=== PATIENT | male | born 1945 | race Caucasian/White ===

== ENCOUNTER → 2018-01-22 | Outpatient (CLI) | payer BC ==
[~2018-01-22] MED LIST: ASPI81TA21 PO; CLBCR15 EXT; LPR25 PO; MULT-506 PO; TAMS0.4C38 PO
== END | disposition home or self-care (01) ==
LOC: C.LAB 08:24
PROVIDERS: ATTEND Urology
DX: R97.20 Elevated prostate specific antigen [PSA] (principal)

== ENCOUNTER 2021-12-09 17:20 | Inpatient (IN) ==
--- NOTE | 2021-12-09 17:51 | Emergency Department Note ---
Impression & Plan Acute urinary retention ADMIT ED Provider Note HPI: The patient is a 76-year-old gentleman with history of BPH, presents the emergency department with 3 to 4 days of hematuria and urinary retention. Patient states that he continues to have some pain today in the suprapubic area that acutely worsened. States he was having difficulty with urination and was just urinating gerry blood and therefore he presented to the emergency department for further assessment. Patient is noted to be anticoagulated on Eliquis for history of atrial fibrillation. On arrival here to the ED he is in no acute distress, he is hemodynamically stable and saturating well on room air. ROS: -: Urinary retention, suprapubic pain, hematuria *10 point review systems was conducted and is otherwise negative unless stated above *Outpatient medications and allergy history reviewed PE: General: Alert, NAD HEENT: Normocephalic, atraumatic Eyes: Extraocular eye movement is intact, no scleral erythema Pulmonary: Clear to auscultation bilaterally, no wheezing Cardio: Regular rate and rhythm GI: Abdomen is soft, nontender : Moderate suprapubic tenderness to palpation MSK: No evidence of trauma or malformation of the extremities, no edema Skin: No evidence of rash Neuro: Alert, no focal deficits Psychiatric: Cooperative monitoring specialist: - An order was placed for continuous cardiac monitoring - Patient was noted to be in atrial fibrillation rhythm with rate of 80 Medical Decision Making: Patient presented to the emergency department with gross hematuria and some urinary retention. CT imaging of the abdomen pelvis shows evidence of debris within the bladder with a markedly distended bladder, this is consistent with likely blood clots within the urinary bladder. Mukherjee catheter was placed with approximately 1000 cc of gross hematuria drained. Hemoglobin is 13.4, patient is hemodynamically stable, no acute kidney injury on lab work. Will hold on anticoagulation reversal at this time given stable hemoglobin and hemodynamic stability. Patient was given a dose of morphine here in the ED for pain. I discussed the above findings with the on-call urology midlevel provider, Garrett Hubbard, patient will be admitted to the hospitalist service with urology consultation. The patient was given a dose of IV ceftriaxone prior to admission. Patient was admitted in stable condition. Diagnosis: 1. Hematuria 2. Acute urinary retention secondary to hematuria/obstruction requiring Mukherjee catheter insertion 3. History of anticoagulation on Eliquis 4. Abdominal pain Disposition: Admission Byron Simms DO Emergency Medicine Past Med/Surg History Medical History (Updated 12/10/21 @ 01:18 by Byron Simms DO) Atrial fibrillation intermittent--follows with Dr. Matta, only blood thinner is aspirin Basal cell carcinoma Benign prostatic hyperplasia with urinary obstruction BPH (benign prostatic hyperplasia) Constipation History of anesthesia reaction pt states that after hernia sx's he has had difficulty urinating, has had to have a catheter placed Hypertension Macular degeneration of right eye Obstructive sleep apnea cpap Prostatitis Urinary urgency Surgical History History of basal cell carcinoma (BCC) excision History of colonoscopy History of esophagogastroduodenoscopy (EGD) History of hernia repair x3 History of left cataract surgery History of Mohs micrographic surgery for skin cancer x2 History of prostate biopsy History of tonsillectomy History of wisdom tooth extraction Zenkers diverticulum removed Family History Other No family history of adverse response to anesthesia Denies family history of Prostate cancer Social History Smoking Status: Never smoker Second Hand Exposure: No; Hx Alcohol Use: Yes (social) Hx Substance Use: No Preferred Language: Syrian Communication Ability: Effective 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 Beliefs That Will Affect Care: None Current Living Situation: Spouse current occupational status: employed Feels Safe at Home: Yes Assistive Devices: CPAP and Glasses Allergies Allergies Allergy/AdvReac Type Severity Reaction Status Date / Time No Known Allergies Allergy Unknown Verified 12/09/21 18:21 Home Meds Home Medications Medication Instructions Recorded Confirmed metoprolol tartrate 25 mg tablet 25 mg PO QPM tab 09/15/19 12/09/21 hydrochlorothiazide 12.5 mg tablet 12.5 mg PO QAM 04/26/21 12/09/21 apixaban 5 mg tablet (Eliquis) 5 mg PO BID 12/09/21 12/09/21 multivitamin 1 tab PO QAM 12/09/21 12/09/21 Results & Data (ED) Vital Signs Vital Signs - 24 hr 12/09/21 17:24 12/09/21 19:10 12/09/21 21:02 Temperature 36.9 C Temperature Source Temporal Artery Scan Pulse Rate 62 116 H Pulse Rate [Finger] 89 123 H Pulse Rhythm Regular Pulse Rhythm [Finger] Regular Pulse Strength Normal Respiratory Rate 20 20 16 Respiratory Effort / Characteristics Non-Labored Spontaneous Non-Labored Respiratory Depth Normal Normal Respiratory Pattern Regular Blood Pressure 128/73 Blood Pressure [Left Arm] 104/82 115/76 Blood Pressure Mean 91 Blood Pressure Mean [Left Arm] 89 89 Blood Pressure Position Sitting Pulse Oximetry 100 96 99 Oxygen Delivery Method Room Air Room Air Room Air Sepsis Recent Fever Within 48 Hours No Sepsis New/Unexplained Change in Mental Status N/A Sepsis Action Taken by Nursing No Action Required Laboratory Data Result diagrams: 12/09/21 17:55 12/09/21 17:55 Lab Results 12/09/21 12/09/21 12/09/21 Range/Units 17:55 17:55 17:55 WBC 10.88 H (4.8-10.8) K/uL RBC 4.29 L (4.7-6.1) M/uL Hgb 13.4 L (14.0-18.0) g/dL Hct 40.3 L (42-52) % MCV 93.9 (80-100) fL MCH 31.2 (25-34) pg MCHC 33.3 (32-36) g/dL RDW Std Deviation 48.6 H (36.4-46.3) fL RDW Coeff of Seun 14.3 (11.5-14.5) % Plt Count 292 (130-400) K/uL MPV 10.7 H (7.4-10.4) fL Immature Gran % (Auto) 0.1 % Neut % (Auto) 85.8 % Lymph % (Auto) 8.5 % Alfalfa % (Auto) 5.5 % Eos % (Auto) 0.0 % Baso % (Auto) 0.1 % Neut # (Auto) 9.33 H (1.4-6.5) K/uL Lymph # (Auto) 0.93 L (1.2-3.4) K/uL Alfalfa # (Auto) 0.60 H (0.11-0.59) K/uL Eos # (Auto) 0.00 (0-0.5) K/uL Baso # (Auto) 0.01 (0-0.2) K/uL Immature Gran # (Auto) 0.01 (0.00-0.02) K/uL PT 10.3 (9.0-12.0) Seconds INR 1.0 (0.9-1.1) Sodium 133 L (136-145) mmol/L Potassium 3.6 (3.5-5.1) mmol/L Chloride 97 L (98-107) mmol/L Carbon Dioxide 26 (21-32) mmol/L Anion Gap 10 (3-11) BUN 24 H (6-23) mg/dl Creatinine 1.13 (0.6-1.4) mg/dl Est Cr Clr Drug Dosing 54.6 ml/min Est GFR ( Amer) 73.3 ml/min Est GFR (Non-Af Amer) 63.2 ml/min BUN/Creatinine Ratio 21.2 H (10-20) Glucose 135 H (70-99(Fasting)) mg/dl Calcium 9.8 (8.5-10.1) mg/dl Total Bilirubin 0.4 (0.2-1.0) mg/dl AST 25 (13-39) U/L ALT 21 (7-52) U/L Alkaline Phosphatase 77 (34-104) U/L Total Protein 6.9 (6.0-8.3) gm/dl Albumin 4.4 (3.4-5.0) gm/dl Globulin 2.5 (2.5-4.0) gm/dl Albumin/Globulin Ratio 1.8 (0.9-2) Lipase 16 (11-82) U/L Urine Color Urine Appearance (Clear) Urine pH (4.5-7.5) Ur Specific [place] (1.000-1.030) Urine Protein (Negative) Urine Glucose (UA) (Negative) Urine Ketones (Negative) Urine Blood (Negative) Urine Nitrite (Negative) Urine Bilirubin (Negative) Urine Urobilinogen (Negative) Ur Leukocyte Esterase (Negative) Urine RBC (0-4) /hpf Urine WBC (0-5) /hpf Ur Epithelial Cells (0-5) /lpf Urine Bacteria (Negative) SARS-CoV-2, RNA, NAAT (NEGATIVE) 12/09/21 12/09/21 Range/Units 18:16 21:35 WBC (4.8-10.8) K/uL RBC (4.7-6.1) M/uL Hgb (14.0-18.0) g/dL Hct (42-52) % MCV (80-100) fL MCH (25-34) pg MCHC (32-36) g/dL RDW Std Deviation (36.4-46.3) fL RDW Coeff of Seun (11.5-14.5) % Plt Count (130-400) K/uL MPV (7.4-10.4) fL Immature Gran % (Auto) % Neut % (Auto) % Lymph % (Auto) % Alfalfa % (Auto) % Eos % (Auto) % Baso % (Auto) % Neut # (Auto) (1.4-6.5) K/uL Lymph # (Auto) (1.2-3.4) K/uL Alfalfa # (Auto) (0.11-0.59) K/uL Eos # (Auto) (0-0.5) K/uL Baso # (Auto) (0-0.2) K/uL Immature Gran # (Auto) (0.00-0.02) K/uL PT (9.0-12.0) Seconds INR (0.9-1.1) Sodium (136-145) mmol/L Potassium (3.5-5.1) mmol/L Chloride (98-107) mmol/L Carbon Dioxide (21-32) mmol/L Anion Gap (3-11) BUN (6-23) mg/dl Creatinine (0.6-1.4) mg/dl Est Cr Clr Drug Dosing ml/min Est GFR ( Amer) ml/min Est GFR (Non-Af Amer) ml/min BUN/Creatinine Ratio (10-20) Glucose (70-99(Fasting)) mg/dl Calcium (8.5-10.1) mg/dl Total Bilirubin (0.2-1.0) mg/dl AST (13-39) U/L ALT (7-52) U/L Alkaline Phosphatase (34-104) U/L Total Protein (6.0-8.3) gm/dl Albumin (3.4-5.0) gm/dl Globulin (2.5-4.0) gm/dl Albumin/Globulin Ratio (0.9-2) Lipase (11-82) U/L Urine Color Red Urine Appearance Turbid A (Clear) Urine pH (4.5-7.5) Ur Specific [place] 1.018 (1.000-1.030) Urine Protein (Negative) Urine Glucose (UA) (Negative) Urine Ketones (Negative) Urine Blood (Negative) Urine Nitrite (Negative) Urine Bilirubin (Negative) Urine Urobilinogen (Negative) Ur Leukocyte Esterase (Negative) Urine RBC >30 H (0-4) /hpf Urine WBC 5-10 H (0-5) /hpf Ur Epithelial Cells 0-5 (0-5) /lpf Urine Bacteria 2+ H (Negative) SARS-CoV-2, RNA, NAAT NEGATIVE (NEGATIVE) Administered Medications Lactated Ringer's (Lr) 1,000 mls @ 125 mls/hr IV .Q8H KAREN Stop: 01/09/22 00:11 Last Admin: 12/10/21 00:26 Dose: 125 mls/hr Documented by: [id number] Discontinued Medications Ceftriaxone Sodium (Rocephin) 1,000 mg in 50 mls @ 100 mls/hr IV NOW STA Stop: 12/09/21 22:03 Last Infusion: 12/09/21 22:30 Dose: 0 mls/hr Documented by: [id number] Admin: 12/09/21 22:02 Dose: 100 mls/hr Documented by: [id number] Morphine Sulfate (Morphine Sulfate 4 Mg/Ml 1 Ml Carp\Vial) 4 mg IV NOW STA Stop: 12/09/21 21:14 Last Admin: 12/09/21 21:32 Dose: 4 mg Documented by: [id number] Tamsulosin HCl (Tamsulosin Hcl 0.4 Mg Cap) 0.4 mg PO NOW ONE Stop: 12/09/21 22:32 Last Admin: 12/10/21 00:37 Dose: 0.4 mg Documented by: [id number] Imaging Data Radiologist's Impression: Abdomen/Pelvis CT 12/09/21 17:49 CT SCAN OF THE ABDOMEN AND PELVIS WITHOUT IV CONTRAST CLINICAL HISTORY: Lower abdominal pain. Urinary retention. Hematuria. COMPARISON STUDY: Abdominal CT dated 05/30/2012. TECHNIQUE: CT scan of the abdomen and pelvis is performed from the lung bases to the proximal femora. Images are reviewed in the axial, sagittal, and coronal planes. IV contrast was not administered for this examination. A dose lowering technique was utilized adhering to the principles of ALARA. CT DOSE: 882.51 mGycm FINDINGS: Lung bases: The heart is enlarged and without pericardial effusion. The lung bases are clear noting dependent scarring/atelectasis. There is a tiny hiatal hernia. Liver: The unenhanced liver is normal in size, contour, and attenuation. There is no intrahepatic biliary ductal dilatation. Gallbladder: Unremarkable. Spleen: Normal in size and attenuation. Pancreas: The unenhanced pancreas is normal in size. Scattered calcifications suggest chronic pancreatitis. Adrenal glands: Unremarkable. Kidneys: The unenhanced kidneys are normal in size. There is moderate right and mild to moderate left hydroureteronephrosis. The ureters are distended to the level of the bladder. No hyperdense debris or calculi are identified within the renal pelvis bilaterally or along the course of the ureters. There is no evidence of contour deforming renal mass lesion. Abdominal vasculature: The abdominal aorta is normal in course and caliber noting scattered foci of atherosclerotic calcification. Bowel: There is mild to moderate colonic fecal retention. No bowel obstruction is identified. The appendix is well-visualized and normal. Peritoneum: There is no intraperitoneal free air or abdominal ascites. Lymphadenopathy: None. Pelvic viscera: The bladder is distended, measuring 15.5 cm cranial caudal length. The bladder is filled with hyperdense material which likely represents blood clots. A Mukherjee catheter is in place. The bladder wall appears thickened and trabeculated indicating chronic outlet obstruction. A 14 mm bladder diverticulum is seen posteriorly on the left. The prostate gland is markedly enlarged and heterogeneous, measuring 6.7 cm in transverse diameter. There is evidence of previous bilateral inguinal herniorrhaphy. Skeletal structures: The skeletal structures are osteopenic. There is mild lumbosacral spondylosis. No lytic or blastic lesions are seen. IMPRESSION: 1. The bladder is markedly distended and filled with hyperdense material that is typical for blood clots. Follow-up with urology is recommended. 2. Marked prostatomegaly with evidence of chronic bladder outlet obstruction. 3. A Mukherjee catheter is in place. 4. Right greater than left-sided hydroureteronephrosis is likely secondary to bladder distention. 5. Additional findings as above. ACT 112: Negative or not required by law. Electronically signed by: Anson Luu M.D. 12/09/2021 7:22 PM Discharge Plan Visit Data Chief Complaint: Unable to Void Stated Complaint: UNABLE TO VOID, ONLY BLOOD COMES OUT ED Provider: Byron Simms Discharge Problem: Acute urinary retention Patient Disposition: Admitted As Inpatient Discharge Instructions Interventions: ED Discharge Assessment Last Done: 12/09/21 23:41
[2021-12-09 18:24] LABS: Basophils # (auto) 0.01 K/uL (0-0.2); Basophils % (auto) 0.1 %; Hematocrit (blood only) 40.3 % (42-52); Hemoglobin 13.4 g/dL (14.0-18.0); Immature Granulocytes # (auto) 0.01 K/uL (0.00-0.02); Immature Granulocytes % (auto) 0.1 %; Lymphocytes # (auto) 0.93 K/uL (1.2-3.4); Lymphocytes % (auto) 8.5 %; Mean Corpuscular Hemoglobin 31.2 pg (25-34); Mean Corpuscular Hgb Conc 33.3 g/dL (32-36); Mean Corpuscular Volume 93.9 fL (80-100); Mean Platelet Volume 10.7 fL (7.4-10.4); Monocytes % (auto) 5.5 %; Neutrophils # (auto) 9.33 K/uL (1.4-6.5); Neutrophils % (auto) 85.8 %; Platelet Count 292 K/uL (130-400); RDW Coefficient of Variation 14.3 % (11.5-14.5); RDW Standard Deviation 48.6 fL (36.4-46.3); Red Blood Count 4.29 M/uL (4.7-6.1); White Blood Count 10.88 K/uL (4.8-10.8)
[2021-12-09 18:32] LABS: Prothrombin Time 10.3 Seconds (9.0-12.0)
[2021-12-09 18:44] LABS: Appearance Urine Turbid (Clear); Color Urine Red
[2021-12-09 18:45] LABS: Specific Gravity Urine 1.018 (1.000-1.030)
[2021-12-09 18:47] LABS: Albumin Globulin Ratio 1.8 (0.9-2); Albumin Level 4.4 gm/dl (3.4-5.0); BUN Creatinine Ratio 21.2 (10-20); Bilirubin,Total 0.4 mg/dl (0.2-1.0); Calcium 9.8 mg/dl (8.5-10.1); Creatinine Clr Calc Pharmacy 54.6 ml/min; Est GFR (African American) 73.3 ml/min; Est GFR (Non-African American) 63.2 ml/min; Globulin 2.5 gm/dl (2.5-4.0); Potassium 3.6 mmol/L (3.5-5.1); Total Protein 6.9 gm/dl (6.0-8.3)
[2021-12-09 18:51] LABS: Bacteria Urine 2+ (Negative); Epithelial Cell Urine 0-5 /lpf (0-5); RBC Urine >30 /hpf (0-4)
--- NOTE | 2021-12-09 19:23 | CT Scan Report ---
CT SCAN OF THE ABDOMEN AND PELVIS WITHOUT IV CONTRAST CLINICAL HISTORY: Lower abdominal pain. Urinary retention. Hematuria. COMPARISON STUDY: Abdominal CT dated 05/30/2012. TECHNIQUE: CT scan of the abdomen and pelvis is performed from the lung bases to the proximal femora. Images are reviewed in the axial, sagittal, and coronal planes. IV contrast was not administered for this examination. A dose lowering technique was utilized adhering to the principles of ALARA. CT DOSE: 882.51 mGycm FINDINGS: Lung bases: The heart is enlarged and without pericardial effusion. The lung bases are clear noting d ependent scarring/atelectasis. There is a tiny hiatal hernia. Liver: The unenhanced liver is normal in size, contour, and attenuation. There is no intrahepatic tabitha iary ductal dilatation. Gallbladder: Unremarkable. Spleen: Normal in size and attenuation. Pancreas: The unenhanced pancreas is normal in size. Scattered calcifications suggest chronic pancrea titis. Adrenal glands: Unremarkable. Kidneys: The unenhanced kidneys are normal in size. There is moderate right and mild to moderate left hydroureteronephrosis. The ureters are distended to the level of the bladder. No hyperdense debris o r calculi are identified within the renal pelvis bilaterally or along the course of the ureters. Ther e is no evidence of contour deforming renal mass lesion. Abdominal vasculature: The abdominal aorta is normal in course and caliber noting scattered foci of a therosclerotic calcification. Bowel: There is mild to moderate colonic fecal retention. No bowel obstruction is identified. The fiona endix is well-visualized and normal. Peritoneum: There is no intraperitoneal free air or abdominal ascites. Lymphadenopathy: None. Pelvic viscera: The bladder is distended, measuring 15.5 cm cranial caudal length. The bladder is vane led with hyperdense material which likely represents blood clots. A Mukherjee catheter is in place. The b ladder wall appears thickened and trabeculated indicating chronic outlet obstruction. A 14 mm bladder diverticulum is seen posteriorly on the left. The prostate gland is markedly enlarged and heterogene ous, measuring 6.7 cm in transverse diameter. There is evidence of previous bilateral inguinal hernio rrhaphy. Skeletal structures: The skeletal structures are osteopenic. There is mild lumbosacral spondylosis. N o lytic or blastic lesions are seen. IMPRESSION: 1. The bladder is markedly distended and filled with hyperdense material that is typical for blood cl ots. Follow-up with urology is recommended. 2. Marked prostatomegaly with evidence of chronic bladder outlet obstruction. 3. A Mukherjee catheter is in place. 4. Right greater than left-sided hydroureteronephrosis is likely secondary to bladder distention. 5. Additional findings as above. ACT 112: Negative or not required by law. Electronically signed by: Anson Luu M.D. 12/09/2021 7:22 PM
[2021-12-09] MEDS ORDERED: MoRPHine SULFATE 4 MG/ML 1 ML CARP\\VIAL IV STA (21:13)
[2021-12-09] MEDS ORDERED: cefTRIAXone SODIUM 1,000 MG/50 ML BAG IV STA (21:34)
--- NOTE | 2021-12-09 22:16 | Urology Consultation ---
Date of Consultation December 09, 2021 Assessment & Plan (1) Gross hematuria: Due to the patient's clinical presentation he is being admitted by the hospitalist. We recommend proceeding as follows: Follow serial hemoglobin and hematocrits with transfusion as needed if a significant anemia ensues Maintain Dao catheter. If the Dao catheter becomes clogged with blood clots manual irrigation can be employed. Hold any agents that might precipitate bleeding such as Eliquis or aspirin Discussed with the patient and his that the patient's symptoms and hematuria could be related to multiple things. Most likely this is related to BPH causing bladder outlet obstruction causing bladder distention and rupture of some superficial bladder veins. Our hope is that this hematuria will clear with decompression of his bladder. We also discussed with the patient that he will likely require an additional evaluation in the future including modalities such as repeat CT scan of the abdomen and pelvis and potentially a cystoscopy. Additional recommendations be forthcoming based on his clinical course as it unfolds (2) Benign prostatic hyperplasia with urinary obstruction: Supervising Physician Co-Signing Physician Notes I have seen and examined Mr. Kerr and agree with the above documentation. His bladder is currently decompressed with dao catheter. If catheter becomes clogged, would recommend hand-irrigation to clear out any blood clots. For now we will hold-off on CBI. He will require full hematuria workup, but this can be completed as an outpatient. Urology will follow along. History of Present Illness Reason for Consultation: Hematuria and urinary retention History of Present Illness This is a 76-year-old male who came in to the emergency department about [facility] secondary to hematuria and urinary retention. I did question patient on his urologic history and he notes for several months he has had symptoms consistent with obstructive uropathy. The patient notes that he has a decreased urine stream and he also notes that the force of his urine stream has been decreased. Patient notes that he would have to stand at the commode for an extended period of time to completely empty his bladder. Patient notes that several days ago he developed hematuria. Notes it was dark red blood and got progressively worse and was quite significant this morning. He notes that earlier today he eventually reached the point when he could not urinate any further. The patient denies any dysuria. He denies any fevers, shakes, chills. The patient denies any exposures to any chemicals or toxic fumes. He denies any weight loss. Patient notes that prior to presenting to the emergency department he had significant suprapubic pressure consistent with a full bladder. Patient also adds that he follows with Dr. Hallie [facility]. He has taken Flomax in the past and he notes that this offered only some relief to his urinary symptoms. Patient presented to the emergency department where Dao catheter was placed. The treating emergency room physician notes that approximately 1 L of bloody urine was retrieved. Patient did report symptomatic relief with insertion of the Dao catheter. Since being in the emergency department the patient also had labs and imaging which independent reviewed. A CT scan of the abdomen pelvis showed the patient had hyperdense material in the bladder consistent with blood clots. There is marked prostamegaly noted. The bladder was decompressed with a Dao and bilateral hydronephrosis was noted. Labs include a CBC where white blood cell count was 10.8. Hemoglobin and hematocrit were 13.4 and 40.3 respectively. Platelet count was noted be within normal range. Chemistry profile showed that sodium was 133. Potassium and creatinine were both normal. There is a slight elevation of his BUN at 24. Coagulation studies were normal. Urinalysis did show greater than 30 red blood cells per high-power field and 5- 10 white blood cells per high-power field. A Covid test was negative. At the time of my interview the patient was resting comfortably in bed he was in no distress. Allergies Allergy/AdvReac Type Severity Reaction Status Date / Time No Known Allergies Allergy Unknown Verified 12/09/21 18:21 Home Medications Medication Instructions Recorded Confirmed Type metoprolol tartrate 25 mg tablet 25 mg PO QPM tab 09/15/19 12/09/21 History hydrochlorothiazide 12.5 mg tablet 12.5 mg PO QAM 04/26/21 12/09/21 History apixaban 5 mg tablet (Eliquis) 5 mg PO BID 12/09/21 12/09/21 History multivitamin 1 tab PO QAM 12/09/21 12/09/21 History Patient History Medical History Atrial fibrillation intermittent--follows with Dr. Matta, only blood thinner is aspirin Basal cell carcinoma Benign prostatic hyperplasia with urinary obstruction BPH (benign prostatic hyperplasia) Constipation History of anesthesia reaction pt states that after hernia sx's he has had difficulty urinating, has had to have a catheter placed Hypertension Macular degeneration of right eye Obstructive sleep apnea cpap Prostatitis Urinary urgency Surgical History History of basal cell carcinoma (BCC) excision History of colonoscopy History of esophagogastroduodenoscopy (EGD) History of hernia repair x3 History of left cataract surgery History of Mohs micrographic surgery for skin cancer x2 History of prostate biopsy History of tonsillectomy History of wisdom tooth extraction Zenkers diverticulum removed Family History Other No family history of adverse response to anesthesia Denies family history of Prostate cancer Social History Smoking Status: Never smoker Second Hand Exposure: No; Hx Alcohol Use: Yes (social) Hx Substance Use: No Preferred Language: Serbian Communication Ability: Effective Oenologist Required: No Beliefs That Will Affect Care: None Current Living Situation: Spouse current occupational status: employed Feels Safe at Home: Yes Assistive Devices: CPAP and Glasses Review of Systems Constitutional: no fever and no chills Eyes: no diplopia Ear, Nose, Mouth, Throat: no ear pain Respiratory: no cough and no dyspnea Cardiovascular: no chest pain Gastrointestinal: no abdominal pain, no nausea and no vomiting Genitourinary: + as per Subjective / HPI Musculoskeletal: no back pain Integumentary: no rash Neurologic: no localized weakness Physical Exam Constitutional: WD/WN, vitals as above Eyes: no conjunctival abnormality ENMT: Ears: no hearing impairment Neck: trachea midline Respiratory: normal respiratory effort, lungs clear to auscultation Cardiovascular: Rate/Rhythm: regular rate and regular rhythm Gastrointestinal (Abdomen): Soft, nontender, nondistended Musculoskeletal: No calf tenderness Skin: no rashes Neurologic: moves all extremities Psychiatric: A+Ox3, euthymic affect Genitourinary: Dao catheter was in place. It appeared to be patent and draining dark red-colored urine. Results & Data ([facility]) Vital Signs (Past 12 Hours) Vital Signs Temp Pulse Pulse Resp BP BP Pulse Ox 12/09/21 21:02 123 H 16 115/76 99 12/09/21 19:10 116 H 89 20 104/82 96 12/09/21 17:24 36.9 C 62 20 128/73 100 PG Care Time/CCT Total # of Minutes Spent Total Time Spent with Patient: Total time spent is greater than 50% in coordination of care (as documented) at patient's floor/unit and/or counseling patient: Coding Level of Care Code 09607 Inpt Consult Level 5 Diagnoses Gross hematuria R31.0 Benign prostatic hyperplasia with urinary obstruction N40.1; N13.8
[2021-12-09] MEDS ORDERED: TAMSULOSIN HCL 0.4 MG CAP PO ONE (22:31)
--- NOTE | 2021-12-09 22:39 | History & Physical Report ---
Date of Service December 09, 2021 Assessment & Plan (1) Gross hematuria: Plan: Gross hematuria/BPH with LUTS/bilateral hydroureteronephrosis secondary to bladder distention- Follow urine culture and sensitivity Ceftriaxone 1 g IV daily Tamsulosin 0.4 mg p.o. now and at bedtime Continue Mukherjee catheter Would not reverse Eliquis unless worsening bleeding or drop in hemoglobin Urology has seen the patient in ED and is consulted (2) Benign prostatic hyperplasia with urinary obstruction: Plan: See above (3) Bilateral hydronephrosis: Plan: See above (4) Obstructive sleep apnea: Plan: will bring in his own auto CPAP machine, with baseline setting 6 cmH2O (5) Atrial fibrillation: Plan: Atrial fibrillation/hypertension- Hold HCTZ and Eliquis Increase metoprolol tartrate from 25 mg every afternoon to twice daily (6) Hypertension: Plan: See above History of Present Illness Chief Complaint: The patient presents to the emergency department with complaint of difficulty urinating and gross blood in urine over the past 3 to 4 days Primary Care Provider: Byron Ortiz The patient is a 76-year-old male with a past medical history including atrial fibrillation, right inguinal hernia, obstructive sleep apnea, hypertension and BPH with LUTS. He presents as noted above with 3 to 4 days of persistent and worsening difficulty urinating and having gross blood in urine. Mukherjee catheter was placed in the emergency department, and is draining darkly colored bloody urine. Patient was assessed by urology while in the emergency department, and they will follow during admission. Allergies Allergy/AdvReac Type Severity Reaction Status Date / Time No Known Allergies Allergy Unknown Verified 12/09/21 18:21 Home Medications Medication Instructions Recorded Confirmed Type metoprolol tartrate 25 mg tablet 25 mg PO QPM tab 09/15/19 12/09/21 History hydrochlorothiazide 12.5 mg tablet 12.5 mg PO QAM 04/26/21 12/09/21 History apixaban 5 mg tablet (Eliquis) 5 mg PO BID 12/09/21 12/09/21 History multivitamin 1 tab PO QAM 12/09/21 12/09/21 History Past Med/Surg History Medical History (Updated 12/09/21 @ 22:37 by Cecilio Fisher MD) Atrial fibrillation intermittent--follows with Dr. Matta, only blood thinner is aspirin Basal cell carcinoma Benign prostatic hyperplasia with urinary obstruction BPH (benign prostatic hyperplasia) Constipation History of anesthesia reaction pt states that after hernia sx's he has had difficulty urinating, has had to have a catheter placed Hypertension Macular degeneration of right eye Obstructive sleep apnea cpap Prostatitis Urinary urgency Surgical History History of basal cell carcinoma (BCC) excision History of colonoscopy History of esophagogastroduodenoscopy (EGD) History of hernia repair x3 History of left cataract surgery History of Mohs micrographic surgery for skin cancer x2 History of prostate biopsy History of tonsillectomy History of wisdom tooth extraction Zenkers diverticulum removed Family History Other No family history of adverse response to anesthesia Denies family history of Prostate cancer Social History Smoking Status: Never smoker Second Hand Exposure: No; Hx Alcohol Use: Yes (social) Hx Substance Use: No Preferred Language: Sami Communication Ability: Effective Marriage Counselor Required: No Beliefs That Will Affect Care: None Current Living Situation: Spouse current occupational status: employed Feels Safe at Home: Yes Assistive Devices: CPAP and Glasses Review of Systems Review of Systems: The patient denies chest pain, palpitations, shortness of breath, dyspnea on exertion, cough, lower extremity swelling, sore throat, fevers, chills, sweats, weight change, fatigue, nausea, vomiting, diarrhea , constipation, abdominal pain, pelvic pain, blood in stool, lightheadedness, dizziness, headache, memory loss, loss of consciousness, rash, imbalance, focal or generalized weakness, numbness or tingling in arms or legs, generalized arthralgias or myalgias, back or neck pain, or night sweats. The review of systems is otherwise negative other than for that already noted above, and at least 10 systems have been reviewed. Physical Exam Physical Exam: The patient is awake, alert and oriented 3, well developed and well nourished, normocephalic and atraumatic, lying in bed and in no acute distress. HEENT--PERRL, EOMI, mucous membranes and oropharynx normal. Neck--supple. No JVD. No bruits. Thyroid normal, trachea midline, no jarek opathy. Heart--normal S1 and S2. No murmurs, rubs or gallops. Lungs--clear bilaterally, no respiratory distress, no accessory muscle use. Abdomen--normal bowel sounds and soft. Nontender. Nondistended, no hernias or masses, no organomegaly. Extremities--no cyanosis or clubbing. No edema. Dermatologic--normal skin turgor, normal color, no abnormal lymph nodes, no rash. Neurologic--cranial nerves II through XII grossly intact. Rheumatologic--normal range of motion. Psychiatric--normal affect. Results & Data Results & Data ([facility]) Vital Signs (Past 12 Hours) Vital Signs Temp Pulse Pulse Resp BP BP Pulse Ox 12/09/21 21:02 123 H 16 115/76 99 12/09/21 19:10 116 H 89 20 104/82 96 12/09/21 17:24 36.9 C 62 20 128/73 100 Laboratory Results Laboratory Results WBC 10.88 K/uL (4.8-10.8) H 12/09/21 17:55 RBC 4.29 M/uL (4.7-6.1) L 12/09/21 17:55 Hgb 13.4 g/dL (14.0-18.0) L 12/09/21 17:55 Hct 40.3 % (42-52) L 12/09/21 17:55 MCV 93.9 fL (80-100) 12/09/21 17:55 MCH 31.2 pg (25-34) 12/09/21 17:55 MCHC 33.3 g/dL (32-36) 12/09/21 17:55 RDW Std Deviation 48.6 fL (36.4-46.3) H 12/09/21 17:55 RDW Coeff of Seun 14.3 % (11.5-14.5) 12/09/21 17:55 Plt Count 292 K/uL (130-400) 12/09/21 17:55 MPV 10.7 fL (7.4-10.4) H 12/09/21 17:55 Immature Gran % (Auto) 0.1 % 12/09/21 17:55 Neut % (Auto) 85.8 % 12/09/21 17:55 Lymph % (Auto) 8.5 % 12/09/21 17:55 [place] % (Auto) 5.5 % 12/09/21 17:55 Eos % (Auto) 0.0 % 12/09/21 17:55 Baso % (Auto) 0.1 % 12/09/21 17:55 Neut # (Auto) 9.33 K/uL (1.4-6.5) H 12/09/21 17:55 Lymph # (Auto) 0.93 K/uL (1.2-3.4) L 12/09/21 17:55 [place] # (Auto) 0.60 K/uL (0.11-0.59) H 12/09/21 17:55 Eos # (Auto) 0.00 K/uL (0-0.5) 12/09/21 17:55 Baso # (Auto) 0.01 K/uL (0-0.2) 12/09/21 17:55 Immature Gran # (Auto) 0.01 K/uL (0.00-0.02) 12/09/21 17:55 PT 10.3 Seconds (9.0-12.0) 12/09/21 17:55 INR 1.0 (0.9-1.1) 12/09/21 17:55 Sodium 133 mmol/L (136-145) L 12/09/21 17:55 Potassium 3.6 mmol/L (3.5-5.1) 12/09/21 17:55 Chloride 97 mmol/L (98-107) L 12/09/21 17:55 Carbon Dioxide 26 mmol/L (21-32) 12/09/21 17:55 Anion Gap 10 (3-11) 12/09/21 17:55 BUN 24 mg/dl (6-23) H 12/09/21 17:55 Creatinine 1.13 mg/dl (0.6-1.4) 12/09/21 17:55 Est Cr Clr Drug Dosing 54.6 ml/min 12/09/21 17:55 Est GFR ( Amer) 73.3 ml/min 12/09/21 17:55 Est GFR (Non-Af Amer) 63.2 ml/min 12/09/21 17:55 BUN/Creatinine Ratio 21.2 (10-20) H 12/09/21 17:55 Glucose 135 mg/dl (70-99(Fasting)) H 12/09/21 17:55 Calcium 9.8 mg/dl (8.5-10.1) 12/09/21 17:55 Total Bilirubin 0.4 mg/dl (0.2-1.0) 12/09/21 17:55 AST 25 U/L (13-39) 12/09/21 17:55 ALT 21 U/L (7-52) 12/09/21 17:55 Alkaline Phosphatase 77 U/L (34-104) 12/09/21 17:55 Total Protein 6.9 gm/dl (6.0-8.3) 12/09/21 17:55 Albumin 4.4 gm/dl (3.4-5.0) 12/09/21 17:55 Globulin 2.5 gm/dl (2.5-4.0) 12/09/21 17:55 Albumin/Globulin Ratio 1.8 (0.9-2) 12/09/21 17:55 Lipase 16 U/L (11-82) 12/09/21 17:55 Urine Color Red 12/09/21 18:16 Urine Appearance Turbid (Clear) A 12/09/21 18:16 Urine pH (4.5-7.5) 12/09/21 18:16 Ur Specific [place] 1.018 (1.000-1.030) 12/09/21 18:16 Urine Protein (Negative) 12/09/21 18:16 Urine Glucose (UA) (Negative) 12/09/21 18:16 Urine Ketones (Negative) 12/09/21 18:16 Urine Blood (Negative) 12/09/21 18:16 Urine Nitrite (Negative) 12/09/21 18:16 Urine Bilirubin (Negative) 12/09/21 18:16 Urine Urobilinogen (Negative) 12/09/21 18:16 Ur Leukocyte Esterase (Negative) 12/09/21 18:16 Urine RBC >30 /hpf (0-4) H 12/09/21 18:16 Urine WBC 5-10 /hpf (0-5) H 12/09/21 18:16 Ur Epithelial Cells 0-5 /lpf (0-5) 12/09/21 18:16 Urine Bacteria 2+ (Negative) H 12/09/21 18:16 SARS-CoV-2, RNA, NAAT NEGATIVE (NEGATIVE) 12/09/21 21:35 Impressions Abdomen/Pelvis CT 12/09/21 17:49 CT SCAN OF THE ABDOMEN AND PELVIS WITHOUT IV CONTRAST CLINICAL HISTORY: Lower abdominal pain. Urinary retention. Hematuria. COMPARISON STUDY: Abdominal CT dated 05/30/2012. TECHNIQUE: CT scan of the abdomen and pelvis is performed from the lung bases to the proximal femora. Images are reviewed in the axial, sagittal, and coronal planes. IV contrast was not administered for this examination. A dose lowering technique was utilized adhering to the principles of ALARA. CT DOSE: 882.51 mGycm FINDINGS: Lung bases: The heart is enlarged and without pericardial effusion. The lung bases are clear noting dependent scarring/atelectasis. There is a tiny hiatal hernia. Liver: The unenhanced liver is normal in size, contour, and attenuation. There is no intrahepatic biliary ductal dilatation. Gallbladder: Unremarkable. Spleen: Normal in size and attenuation. Pancreas: The unenhanced pancreas is normal in size. Scattered calcifications suggest chronic pancreatitis. Adrenal glands: Unremarkable. Kidneys: The unenhanced kidneys are normal in size. There is moderate right and mild to moderate left hydroureteronephrosis. The ureters are distended to the level of the bladder. No hyperdense debris or calculi are identified within the renal pelvis bilaterally or along the course of the ureters. There is no evidence of contour deforming renal mass lesion. Abdominal vasculature: The abdominal aorta is normal in course and caliber noting scattered foci of atherosclerotic calcification. Bowel: There is mild to moderate colonic fecal retention. No bowel obstruction is identified. The appendix is well-visualized and normal. Peritoneum: There is no intraperitoneal free air or abdominal ascites. Lymphadenopathy: None. Pelvic viscera: The bladder is distended, measuring 15.5 cm cranial caudal length. The bladder is filled with hyperdense material which likely represents blood clots. A Mukherjee catheter is in place. The bladder wall appears thickened and trabeculated indicating chronic outlet obstruction. A 14 mm bladder diverticulum is seen posteriorly on the left. The prostate gland is markedly enlarged and heterogeneous, measuring 6.7 cm in transverse diameter. There is evidence of previous bilateral inguinal herniorrhaphy. Skeletal structures: The skeletal structures are osteopenic. There is mild lumbosacral spondylosis. No lytic or blastic lesions are seen. IMPRESSION: 1. The bladder is markedly distended and filled with hyperdense material that is typical for blood clots. Follow-up with urology is recommended. 2. Marked prostatomegaly with evidence of chronic bladder outlet obstruction. 3. A Mukherjee catheter is in place. 4. Right greater than left-sided hydroureteronephrosis is likely secondary to bladder distention. 5. Additional findings as above. ACT 112: Negative or not required by law. Electronically signed by: Anson Luu M.D. 12/09/2021 7:22 PM Code Status & VTE Plan Code Status Full code VTE Prophylaxis Plan VTE Prophylaxis will be ordered: Yes PG Care Time/CCT Total # of Minutes Spent Total Time Spent with Patient: Total time spent is greater than 50% in coordination of care (as documented) at patient's floor/unit and/or counseling patient: Coding Level of Care Code INT OBSERVATION CARE 70M LVL 3 Diagnoses Benign prostatic hyperplasia with urinary obstruction N40.1; N13.8 Gross hematuria R31.0 Bilateral hydronephrosis N13.30 Obstructive sleep apnea G47.33 Atrial fibrillation I48.91 Hypertension I10
[2021-12-10] MEDS ORDERED: ACETAMINOPHEN 325 MG TAB PO PRN (00:12)
[2021-12-10] MEDS ORDERED: ONDANSETRON INJ 2 MG/ML 2 ML VIAL IV PRN (00:12)
[2021-12-10] MEDS: LACTATED RINGER'S 1,000 ML IV SCH ×3 (00:26→16:01)
--- NOTE | 2021-12-10 07:53 | Hospitalist Progress Note ---
Date of Service December 10, 2021 Assessment & Plan (1) Gross hematuria: Plan: Gross hematuria/BPH with LUTS/bilateral hydroureteronephrosis secondary to bladder distention- Follow urine culture and sensitivity Ceftriaxone 1 g IV daily Tamsulosin 0.4 mg p.o. now and at bedtime Continue Dao catheter Urology consult and recommends holding anticoagulants Dao catheter with irrigation if obstructed considering possible cystoscopy in the future pending urine culture (2) Benign prostatic hyperplasia with urinary obstruction: Plan: Remains on tamsulosin (3) Bilateral hydronephrosis: Plan: Secondary to bladder outlet obstruction (4) Obstructive sleep apnea: Plan: will bring in his own auto CPAP machine, with baseline setting 6 cmH2O (5) Atrial fibrillation: Plan: Atrial fibrillation/hypertension- Hold HCTZ and Eliquis Increase metoprolol tartrate from 25 mg every afternoon to twice daily (6) Hypertension: Plan: See above Admission and Anticipated Discharge Date Admission Date: December 09, 2021 Subjective this pt is without complaints, still with very dark red or blackened urine in dao, no other complaints Review of Systems Review of Systems: Mild distress and fatigue no headache, no visual changes no speech or swallowing issues no chest pain, pressure or palpitations no shortness of breath, cough or wheezes no abdominal pain, nausea or vomiting, diarrhea or constipation no dysuria, darkened hematuria no focal joint pain or swelling no back pain, CVA tenderness or radicular pain no bruising, bleeding or rashes no focal signs of weakness or numbness or altered sensation no complaints of anxiety or depression.. Physical Exam Physical Exam: The patient appeared well nourished and normally developed. Vital signs as documented. Head exam is normocephalic atraumatic Neck is without JVD, thyromegaly, or carotid bruits. Lungs are clear to auscultation, no focal loss of breath sounds Cardiac exam, Rhythm is regular.. No murmurs, rubs or gallops. Abdominal exam reveals normal bowel sounds, soft non tender, no masses Extremities are nonedematous and both pedal pulses are present Neurologic exam is alert and oriented, no focal loss of strength or sensation Skin is without bruises or rashes Psychologically is without concerns for anxiety or depression.. Results & Data Results & Data ([facility]) Vital Signs (Past 12 Hours) Vital Signs Temp Pulse Pulse Resp BP Pulse Ox 12/10/21 00:00 98.4 F 90 16 141/87 H 95 12/09/21 23:41 79 16 95 12/09/21 23:32 98.2 F 84 16 112/67 99 12/09/21 21:02 123 H 16 115/76 99 PG Care Time/CCT Total # of Minutes Spent Total Time Spent with Patient: Total time spent is greater than 50% in coordination of care (as documented) at patient's floor/unit and/or counseling patient: Coding Level of Care Code 37630 Subseq Hosp Care Lvl 2 Diagnoses Gross hematuria R31.0 Benign prostatic hyperplasia with urinary obstruction N40.1; N13.8 Bilateral hydronephrosis N13.30 Obstructive sleep apnea G47.33 Atrial fibrillation I48.91 Hypertension I10
[2021-12-10 07:57] LABS: Basophils # (auto) 0.01 K/uL (0-0.2); Basophils % (auto) 0.1 %; Eosinophils # (auto) 0.02 K/uL (0-0.5); Eosinophils % (auto) 0.3 %; Hematocrit (blood only) 32.7 % (42-52); Hemoglobin 10.8 g/dL (14.0-18.0); Immature Granulocytes # (auto) 0.01 K/uL (0.00-0.02); Immature Granulocytes % (auto) 0.1 %; Lymphocytes # (auto) 0.96 K/uL (1.2-3.4); Lymphocytes % (auto) 12.3 %; Mean Corpuscular Hemoglobin 30.9 pg (25-34); Mean Corpuscular Volume 93.7 fL (80-100); Mean Platelet Volume 10.5 fL (7.4-10.4); Monocytes # (auto) 0.69 K/uL (0.11-0.59); Monocytes % (auto) 8.8 %; Neutrophils # (auto) 6.13 K/uL (1.4-6.5); Neutrophils % (auto) 78.4 %; Platelet Count 215 K/uL (130-400); RDW Coefficient of Variation 14.5 % (11.5-14.5); RDW Standard Deviation 49.3 fL (36.4-46.3); Red Blood Count 3.49 M/uL (4.7-6.1); White Blood Count 7.82 K/uL (4.8-10.8)
[2021-12-10 08:22] LABS: Albumin Level 3.5 gm/dl (3.4-5.0); BUN Creatinine Ratio 18.6 (10-20); Calcium 8.5 mg/dl (8.5-10.1); Creatinine Clr Calc Pharmacy 56.5 ml/min; Est GFR (African American) 73.3 ml/min; Est GFR (Non-African American) 63.2 ml/min; Phosphorus 3.6 mg/dl (2.5-4.9); Potassium 3.5 mmol/L (3.5-5.1)
[2021-12-10] MEDS: cefTRIAXone SODIUM 1,000 MG in DEXTROSE 5% 50 ML IV SCH (08:40)
[2021-12-10] MEDS: METOPROLOL TARTRATE 25 MG TAB PO SCH ×2 (08:41→20:10)
--- NOTE | 2021-12-10 09:25 | Urology Progress Note ---
Date of Service December 10, 2021 Assessment & Plan (1) Acute urinary retention: Plan: Urinary retention is now managed with Mukherjee catheter. (2) Gross hematuria: Plan: Urine remains dark red, I suspect there is a component of breakdown of old blood clot. We will tentatively plan for some hand irrigation at the bedside today to see if this can be flushed out from the bladder. For now he is still draining well. We reviewed that he will require cystoscopy as an outpatient for the hematuria work-up. Underlying cause of hematuria is not completely clear. Likely a component of enlarged prostate, possibly worsened by urinary tract infection. Urine culture is pending and he is covered with empiric ceftriaxone. Plan: Maintain Mukherjee catheter in place for now Continue ceftriaxone while awaiting urine culture. Okay to hand irrigate the catheter if it becomes clogged. Admission and Anticipated Discharge Date Admission Date: December 09, 2021 Subjective Mr. Kerr did well overnight, denies any lower abdominal pain. No issues with the catheter overnight Mukherjee still draining a dark red urine but has not clotted off. He denies any lightheadedness. Labs reviewed: CBC with no leukocytosis (WBC 7.82), hemoglobin decreased from 13.4 down to 10.8. BMP will normal electrolytes, creatinine 1.13 (stable) Urine culture is pending, currently treated empirically with ceftriaxone. Review of Systems Constitutional: No fevers or chills Respiratory: No shortness of breath Cardiovascular: Additional Comments: No chest pain Gastrointestinal: No abdominal pain Physical Exam Constitutional: Well-appearing, NAD Gastrointestinal (Abdomen): Abdomen soft, nontender Genitourinary: Mukherjee catheter in place draining maroon-colored urine, c onsistent with old blood. Results & Data ([facility]) Vital Signs (Past 12 Hours) Vital Signs Temp Pulse Pulse Resp BP Pulse Ox 12/10/21 08:22 36.7 C 82 16 111/70 96 12/10/21 00:00 36.9 C 90 16 141/87 H 95 12/09/21 23:41 79 16 95 12/09/21 23:32 36.8 C 84 16 112/67 99 PG Care Time/CCT Total # of Minutes Spent Total Time Spent with Patient: Total time spent is greater than 50% in coordination of care (as documented) at patient's floor/unit and/or counseling patient: Coding Level of Care Code 66573 Subseq Hosp Care Lvl 2 Diagnoses Acute urinary retention R33.8 Gross hematuria R31.0
[2021-12-10] MEDS: TAMSULOSIN HCL 0.4 MG CAP PO SCH (20:11)
[2021-12-11] MEDS: LACTATED RINGER'S 1,000 ML IV SCH ×2 (00:06→07:06)
[2021-12-11 06:37] LABS: Basophils # (auto) 0.01 K/uL (0-0.2); Basophils % (auto) 0.2 %; Eosinophils # (auto) 0.04 K/uL (0-0.5); Eosinophils % (auto) 0.7 %; Hematocrit (blood only) 30.6 % (42-52); Immature Granulocytes # (auto) 0.01 K/uL (0.00-0.02); Immature Granulocytes % (auto) 0.2 %; Lymphocytes # (auto) 1.46 K/uL (1.2-3.4); Lymphocytes % (auto) 24.3 %; Mean Corpuscular Hgb Conc 32.7 g/dL (32-36); Mean Corpuscular Volume 94.7 fL (80-100); Mean Platelet Volume 10.3 fL (7.4-10.4); Monocytes # (auto) 0.46 K/uL (0.11-0.59); Monocytes % (auto) 7.6 %; Neutrophils # (auto) 4.04 K/uL (1.4-6.5); Platelet Count 186 K/uL (130-400); RDW Coefficient of Variation 14.6 % (11.5-14.5); RDW Standard Deviation 50.2 fL (36.4-46.3); Red Blood Count 3.23 M/uL (4.7-6.1); White Blood Count 6.02 K/uL (4.8-10.8)
[2021-12-11 06:56] LABS: Albumin Level 3.1 gm/dl (3.4-5.0); BUN Creatinine Ratio 16.8 (10-20); Calcium 8.3 mg/dl (8.5-10.1); Creatinine Clr Calc Pharmacy 67.2 ml/min; Est GFR (African American) 90.4 ml/min; Phosphorus 2.8 mg/dl (2.5-4.9); Potassium 3.5 mmol/L (3.5-5.1)
--- NOTE | 2021-12-11 08:43 | Urology Progress Note ---
Date of Service December 11, 2021 Assessment & Plan (1) Gross hematuria: (2) Acute urinary retention: Plan: 76yo M admitted with acute urinary retention and gross hematuria - Underlying cause of hematuria unclear, likely a component of enlarged prostate, possibly worsened by urinary tract infection, anticoagulants. - Mukherjee catheter currently draining clear yellow urine with a few small clots in tubing. - Pt is afebrile, VSS. - Labs reviewed - Wbc 6.02, Hgb 10.0, Creatinine 0.95 - Continue to trend - UC&S 12/08 with low counts mixed probable skin sheyla, repeat UC&S 12/09 pending - Blood cultures preliminary no growth x 24 hours - Continue supportive care and empiric Ceftriaxone while awaiting final culture results - Maintain Mukherjee catheter. OK to gently hand irrigate prn clots, retention, suprapubic pain. - Given his urine remains clear, can attempt voiding trial prior to discharge. - Anticoagulants per primary team. - Will arrange outpatient follow-up for cystoscopy to complete hematuria work-up - Pt is agreeable. - Will continue to follow Admission and Anticipated Discharge Date Admission Date: December 09, 2021 Subjective Pt examined at bedside this AM. Awake, resting in bed on arrival. No issues with the catheter overnight. Mukherjee catheter currently draining clear yellow urine. Few small clots noted in tubing. No fevers. Denies lower abdominal and suprapubic pain. Ambulating without issue. Overall feeling well. No additional complaints at this time. Review of Systems Constitutional: as per Subjective / HPI Gastrointestinal: as per Subjective / HPI Genitourinary: + as per Subjective / HPI Physical Exam Constitutional: well developed and well nourished; no acute distress Respiratory: normal respiratory effort and able to speak in complete sentences; no labored breathing and no audible wheezes Gastrointestinal (Abdomen): Inspection/Auscultation: abdomen normal to inspection; abdomen not distended Percussion/Palpation: abdomen soft; abdomen nontender and no guarding Musculoskeletal: Head/Neck/Chest: normocephalic Skin: No visible rashes or lesions to exposed skin areas Neurologic: moves all extremities and awake Psychiatric: Orientation: alert, oriented x 3 and cooperative Genitourinary: Mukherjee catheter intact, draining clear yellow urine with a few small clots noted in tubing. Results & Data ([facility]) Vital Signs (Past 12 Hours) Vital Signs Temp Pulse Resp BP Pulse Ox 12/11/21 07:43 36.5 C 72 16 122/76 98 12/10/21 22:33 37.0 C 57 L 15 124/80 97 PG Care Time/CCT Total # of Minutes Spent Total Time Spent with Patient: Total time spent is greater than 50% in coordination of care (as documented) at patient's floor/unit and/or counseling patient: Coding Level of Care Code 58841 Subseq Hosp Care Lvl 2 Diagnoses Gross hematuria R31.0 Acute urinary retention R33.8
[2021-12-11] MEDS: cefTRIAXone SODIUM 1,000 MG in DEXTROSE 5% 50 ML IV SCH (08:49)
[2021-12-11] MEDS ORDERED: Nursing to Pharmacy Communication SCH (11:30)
--- NOTE | 2021-12-11 12:53 | Hospitalist Progress Note ---
Date of Service December 11, 2021 Assessment & Plan (1) Gross hematuria: Plan: Gross hematuria/BPH with LUTS/bilateral hydroureteronephrosis secondary to bladder distention Urine C&S noting no growth Remains on Ceftriaxone 1 g IV daily Tamsulosin 0.4 mg p.o. now and at bedtime Continue Dao catheter, flush as needed Urology following and recommends holding anticoagulants (Eliquis on hold) Will need cystoscopy but they plan to do this as an outpatient Will treat w/ empiric course of abx (despite negative culture as I do continue to suspect he has an infection) Plan to d/c home with dao and this can be removed as outpatient by urology as there continues to be concern that w/ removal he would get obstructed again (2) Benign prostatic hyperplasia with urinary obstruction: Plan: Remains on tamsulosin (3) Bilateral hydronephrosis: Plan: Secondary to bladder outlet obstruction (4) Obstructive sleep apnea: Plan: will bring in his own auto CPAP machine, with baseline setting 6 cmH2O (5) Atrial fibrillation: Plan: Atrial fibrillation/hypertension- Hold HCTZ and Eliquis Appears admitting doc increased Lopressor d/t RVR At this time, that has resolved and he now has CVR Adjust dose back to his 12.5mg at HS as he has requested and monitor HR (6) Hypertension: Plan: Well controlled on current regimen Plan: Change admit status to full Transition to PO abx in AM Repeat CBC in AM Cap fluids Anticipate d/c home tomorrow, change dao to leg bag, maintain catheter and instruct on how to irrigate if he should need to He will need outpt f/u with urology for catheter management/removal and cystoscopy Admission and Anticipated Discharge Date Admission Date: December 09, 2021 Subjective Patient seen on rounds today. He is resting comfortably in bed and offers no complaints. He did request that his Lopressor dose be changed as he only takes 12.5mg at bedtime. He denies chest pain, dyspnea, dizziness/lightheadedness, n/v/d. Dao catheter in place, during my visit yellow urine noted in tubing w/ a few small specks of blood, no large clots seen. However, shortly after seeing him, RN alerted that he passed a large clot followed by a smaller one. Review of Systems Review of Systems: Mild distress and fatigue no headache, no visual changes no speech or swallowing issues no chest pain, pressure or palpitations no shortness of breath, cough or wheezes no abdominal pain, nausea or vomiting, diarrhea or constipation dao in place, +hematuria no focal joint pain or swelling no back pain, CVA tenderness or radicular pain no bruising, bleeding or rashes no focal signs of weakness or numbness or altered sensation no complaints of anxiety or depression. Physical Exam Physical Exam: GENERAL: 76 yo well-developed, well-nourished elderly WM. NAD. LUNGS: Clear to auscultation bilaterally. CARDIOVASCULAR: Regular rate and rhythm. ABDOMEN: Soft, non-tender and non-distended. BS normal x 4 quad. : dao in place, dark maroon colored urine in bag but yellow urine noted in tubing w/ specks of blood present EXTREMITIES: No edema. Non-tender. Peripheral pulses +2/4. NEUROLOGIC: A&O x3. PSYCHIATRIC: Cooperative. Appropriate mood and affect. SKIN: Warm, dry, intact. No rashes or lesions. Results & Data Results & Data ([facility]) Vital Signs (Past 12 Hours) Vital Signs Temp Pulse Resp BP Pulse Ox 12/11/21 07:43 36.5 C 72 16 122/76 98 Laboratory Results 12/11/21 06:11 12/11/21 06:11 PG Care Time/CCT Total # of Minutes Spent Total Time Spent with Patient: Total time spent is greater than 50% in coordination of care (as documented) at patient's floor/unit and/or counseling patient: Coding Level of Care Code 14810 Subseq Hosp Care Lvl 2 Diagnoses Gross hematuria R31.0 Benign prostatic hyperplasia with urinary obstruction N40.1; N13.8 Bilateral hydronephrosis N13.30 Obstructive sleep apnea G47.33 Atrial fibrillation I48.91 Hypertension I10
[2021-12-11 18:09] LABS: Hematocrit (blood only) 33.7 % (42-52)
[2021-12-11] MEDS: TAMSULOSIN HCL 0.4 MG CAP PO SCH (19:58)
[2021-12-11] MEDS: METOPROLOL TARTRATE 25 MG TAB PO SCH (19:59)
[2021-12-12 06:39] LABS: Basophils # (auto) 0.01 K/uL (0-0.2); Basophils % (auto) 0.2 %; Eosinophils # (auto) 0.08 K/uL (0-0.5); Eosinophils % (auto) 1.4 %; Hematocrit (blood only) 30.5 % (42-52); Hemoglobin 10.1 g/dL (14.0-18.0); Immature Granulocytes # (auto) 0.02 K/uL (0.00-0.02); Immature Granulocytes % (auto) 0.3 %; Mean Corpuscular Hemoglobin 31.3 pg (25-34); Mean Corpuscular Hgb Conc 33.1 g/dL (32-36); Mean Corpuscular Volume 94.4 fL (80-100); Mean Platelet Volume 10.5 fL (7.4-10.4); Monocytes % (auto) 6.8 %; Neutrophils # (auto) 3.93 K/uL (1.4-6.5); Neutrophils % (auto) 67.3 %; Platelet Count 183 K/uL (130-400); RDW Coefficient of Variation 14.2 % (11.5-14.5); RDW Standard Deviation 49.5 fL (36.4-46.3); Red Blood Count 3.23 M/uL (4.7-6.1); White Blood Count 5.84 K/uL (4.8-10.8)
[2021-12-12 06:59] LABS: Albumin Level 3.2 gm/dl (3.4-5.0); BUN Creatinine Ratio 18.6 (10-20); Calcium 8.3 mg/dl (8.5-10.1); Creatinine Clr Calc Pharmacy 74.2 ml/min; Est GFR (African American) 98.3 ml/min; Est GFR (Non-African American) 84.8 ml/min; Phosphorus 3.1 mg/dl (2.5-4.9); Potassium 3.4 mmol/L (3.5-5.1)
[2021-12-12] MEDS: CEFDINIR 300 MG CAP PO SCH ×2 (08:12→20:25)
[2021-12-12] MEDS ORDERED: POTASSIUM CHLORIDE CRTAB 20 MEQ TABCR PO STA (08:21)
--- NOTE | 2021-12-12 09:07 | Urology Progress Note ---
Date of Service December 12, 2021 Assessment & Plan (1) Gross hematuria: (2) Acute urinary retention: Plan: 76yo M admitted with acute urinary retention and gross hematuria - Pt remains afebrile. - Labs reviewed - White count and creatinine normal, Hgb 10.1 - Continue to trend - UC&S 12/08 with low counts mixed probable skin sheyla, repeat UC&S 12/09 final no growth; BCx preliminary no growth x48 hours - Transitioned from IV Ceftriaxone to PO Cefdinir. - Mukherjee catheter currently draining red urine with a few small clots in tubing. - Plan of care reviewed with - Given his persistent episodes of gross hematuria, will plan to proceed to OR today for Cystoscopy, clot evacuation, and possible fulguration depending on findings. - Risks and benefits to be reviewed with patient by Dr. Johnson. OR notified. Covid test negative. - Will cover with IV Ceftriaxone preoperatively. - Patient agreeable to plan, all questions were answered. - Keep NPO. - Maintain Mukherjee catheter. OK to gently hand irrigate prn clots, retention, suprapubic pain. - Continue supportive care, antibiotic therapy, and tamsulosin - Anticoagulants on hold per primary team - Will continue to follow Admission and Anticipated Discharge Date Admission Date: December 11, 2021 Subjective Pt examined at bedside this AM. Awake, resting in bed on arrival. No acute distress. Denies any pain or discomfort at present. Pt denies any issues with the catheter overnight. Mukherjee catheter intact and draining. During my initial exam, the catheter was draining clear yellow urine. On reassessment, the catheter was draining red urine with a few small clots in tubing. Per nursing, the urine has changed from clear yellow to red multiple times. No fevers. Has been NPO. Review of Systems Constitutional: as per Subjective / HPI Gastrointestinal: as per Subjective / HPI Genitourinary: + as per Subjective / HPI Physical Exam Constitutional: well developed and well nourished; no acute distress Respiratory: normal respiratory effort and able to speak in complete sentences; no labored breathing and no audible wheezes Gastrointestinal (Abdomen): Inspection/Auscultation: abdomen normal to inspection; abdomen not distended Percussion/Palpation: abdomen soft; abdomen nontender and no guarding Musculoskeletal: Head/Neck/Chest: normocephalic Skin: No visible rashes or lesions to exposed skin areas Neurologic: moves all extremities and awake Psychiatric: Orientation: alert, oriented x 3 and cooperative Genitourinary: During my initial exam, the catheter was draining clear yellow urine. On reassessment, the catheter was draining red urine with a few small clots in tubing. Results & Data ([facility]) Vital Signs (Past 12 Hours) Vital Signs Temp Pulse Resp BP Pulse Ox 12/12/21 07:48 36.9 C 72 16 145/73 H 97 PG Care Time/CCT Total # of Minutes Spent Total Time Spent with Patient: Total time spent is greater than 50% in coordination of care (as documented) at patient's floor/unit and/or counseling patient: Coding Level of Care Code 12441 Subseq Hosp Care Lvl 2 Diagnoses Acute urinary retention R33.8 Gross hematuria R31.0
[2021-12-12] MEDS ORDERED: NURSING DECISION MEDICATION ONE (09:39)
[2021-12-12] MEDS ORDERED: SODIUM CHLORIDE 0.65% NA SOLN 45 ML (OCEAN) ONE (09:52)
[2021-12-12] MEDS ORDERED: SODIUM CHLORIDE 0.65% NA SOLN 45 ML (OCEAN) PRN (09:59)
--- NOTE | 2021-12-12 10:43 | Hospitalist Progress Note ---
Date of Service December 12, 2021 Assessment & Plan (1) Gross hematuria: Plan: Gross hematuria/BPH with LUTS/bilateral hydroureteronephrosis secondary to bladder distention Urine C&S noting no growth Remains on Ceftriaxone 1 g IV daily Tamsulosin 0.4 mg p.o. now and at bedtime Continue Dao catheter, flush as needed Urology following and recommends holding anticoagulants (Eliquis on hold) Continue Cefdinir (despite negative culture as I do continue to suspect he has an infection), given a dose of IV Rocephin today due to procedure He has been n.p.o. since midnight and is for cystoscopy today with Dr. Johnson Resume IV fluid hydration while n.p.o. (2) Benign prostatic hyperplasia with urinary obstruction: Plan: Remains on tamsulosin (3) Bilateral hydronephrosis: Plan: Secondary to bladder outlet obstruction (4) Obstructive sleep apnea: Plan: will bring in his own auto CPAP machine, with baseline setting 6 cmH2O (5) Atrial fibrillation: Plan: Atrial fibrillation/hypertension Hold HCTZ and Eliquis Appears admitting doc increased Lopressor d/t RVR At this time, that has resolved and he now has CVR Adjust dose back to his 12.5mg at HS as he has requested and monitor HR (6) Hypertension: Plan: Well controlled on current regimen Plan: Continue n.p.o. status, for cystoscopy today. Potassium supplemented for K+ of 3.4. Continue gentle IV fluid hydration. Given a dose of Rocephin as noted above. Can plan to resume cefdinir tomorrow morning. Await input from urology on plan moving forward following cystoscopy. Admission and Anticipated Discharge Date Admission Date: December 11, 2021 Subjective Patient seen on rounds today. He is resting comfortably in bed and offers no complaints. He denies chest pain, dyspnea, dizziness/lightheadedness, n/v/d. Dao catheter in place, during my visit yellow urine noted in tubing w/ a few small specks of blood, no large clots seen but dao bag full of gross bright red hematuria. Review of Systems Review of Systems: no distress and fatigue no headache, no visual changes no speech or swallowing issues no chest pain, pressure or palpitations no shortness of breath, cough or wheezes no abdominal pain, nausea or vomiting, diarrhea or constipation dao in place, +hematuria no focal joint pain or swelling no back pain, CVA tenderness or radicular pain no bruising, bleeding or rashes no focal signs of weakness or numbness or altered sensation no complaints of anxiety or depression. Physical Exam Physical Exam: GENERAL: 76 yo well-developed, well-nourished elderly WM. NAD. LUNGS: Clear to auscultation bilaterally. CARDIOVASCULAR: Regular rate and rhythm. ABDOMEN: Soft, non-tender and non-distended. BS normal x 4 quad. : dao in place, bright red bloody urine in bag but yellow urine noted in tubing w/ specks of blood present, following palpation of bladder had grossly bloody urine present in tubing EXTREMITIES: No edema. Non-tender. Peripheral pulses +2/4. NEUROLOGIC: A&O x3. PSYCHIATRIC: Cooperative. Appropriate mood and affect. SKIN: Warm, dry, intact. No rashes or lesions. Results & Data Results & Data ([facility]) Vital Signs (Past 12 Hours) Vital Signs Temp Pulse Resp BP Pulse Ox 12/12/21 07:48 36.9 C 72 16 145/73 H 97 Laboratory Results 12/12/21 05:43 12/12/21 05:43 PG Care Time/CCT Total # of Minutes Spent Total Time Spent with Patient: Total time spent is greater than 50% in coordination of care (as documented) at patient's floor/unit and/or counseling patient: Coding Level of Care Code 99087 Subseq Hosp Care Lvl 2 Diagnoses Gross hematuria R31.0 Benign prostatic hyperplasia with urinary obstruction N40.1; N13.8 Bilateral hydronephrosis N13.30 Obstructive sleep apnea G47.33 Atrial fibrillation I48.91 Hypertension I10
[2021-12-12] MEDS: SODIUM CHLORIDE 0.9% 1000ML 1,000 ML IV SCH ×2 (11:17→23:27)
[2021-12-12] MEDS ORDERED: cefTRIAXone SODIUM 1,000 MG in DEXTROSE 5% 50 ML IV ONE (11:45)
[2021-12-12] MEDS ORDERED: fentaNYL citrate 100 MCG/2 ML VIAL ONE ×2 (14:18→14:51)
[2021-12-12] MEDS ORDERED: ATROPINE SULFATE 0.1 MG/ML 10ML SYR IV PRN (14:19)
[2021-12-12] MEDS ORDERED: ePHEDrine sulfate 50 MG/ML AMP IV PRN (14:19)
[2021-12-12] MEDS ORDERED: fentaNYL citrate 100 MCG/2 ML VIAL IV PRN (14:19)
[2021-12-12] MEDS ORDERED: ONDANSETRON INJ 2 MG/ML 2 ML VIAL IV PRN (14:19)
--- NOTE | 2021-12-12 14:19 | Anesthesiology Consultation ---
Date of Service December 12, 2021 Assessment & Plan Chart Review Chart Review: Acceptable Risk for Surgery and Patient NOT seen in Pre Admission Testing Consults Requested none ASA ASA3 Proposed Anesthesia Anesthesia Type: MAC Risk / Benefits Reviewed With: PT / POA / Parent / Guardian, Accepts Plan and Informed Consent Obtained History Surgery Operation Date: 12/12/21 08:35 Proposed Procedures p Cystoscopy, Clot Evacuation and Possible Fulguration - Nir Johnson MD Height/Weight Height: 5 ft 9 in Weight: 73 kg Allergies Allergy/AdvReac Type Severity Reaction Status Date / Time No Known Allergies Allergy Unknown Verified 12/09/21 18:21 Medications Home Medications Medication Instructions Recorded Confirmed Last Taken metoprolol tartrate 25 mg tablet 25 mg PO QPM tab 09/15/19 12/09/21 12/08/21 hydrochlorothiazide 12.5 mg tablet 12.5 mg PO QAM 04/26/21 12/09/21 12/08/21 apixaban 5 mg tablet (Eliquis) 5 mg PO BID 12/09/21 12/09/21 12/09/21 multivitamin 1 tab PO QAM 12/09/21 12/09/21 12/09/21 Active Medications Generic Name Dose Route Start Last Admin Trade Name Freq PRN Reason Stop Dose Admin Cefdinir 300 mg 12/12/21 09:00 12/12/21 08:12 Cefdinir 300 Mg Cap PO 12/22/21 08:59 300 mg BID KAREN Administration Sodium Chloride 1,000 mls @ 100 mls/hr 12/12/21 10:30 12/12/21 11:17 Nss 1000ml IV 01/11/22 10:29 100 mls/hr .Q10H KAREN Administration Metoprolol Tartrate 12.5 mg 12/11/21 21:00 12/11/21 19:59 Metoprolol Tartrate 25 Mg Tab PO 01/10/22 20:59 12.5 mg HS KAREN Administration Tamsulosin HCl 0.4 mg 12/10/21 21:00 12/11/21 19:58 Tamsulosin Hcl 0.4 Mg Cap PO 01/09/22 20:59 0.4 mg HS KAREN Administration NPO Date Last Intake of Fluids: 12/11/21 Time Last Intake of Fluids: 22:00 Date Last Intake of Solids: 12/11/21 Time Last Intake of Solids: 18:00 Past Medical History Medical History (Updated 12/10/21 @ 01:18 by Byron Simms, DO) Atrial fibrillation intermittent--follows with Dr. Matta, only blood thinner is aspirin Basal cell carcinoma Benign prostatic hyperplasia with urinary obstruction BPH (benign prostatic hyperplasia) Constipation History of anesthesia reaction pt states that after hernia sx's he has had difficulty urinating, has had to have a catheter placed Hypertension Macular degeneration of right eye Obstructive sleep apnea cpap Prostatitis Urinary urgency Exercise / Class Metabolic Activity II 4-5 Yardwork/Stairs/Walk up hill Past Family History Family History Other No family history of adverse response to anesthesia Denies family history of Prostate cancer Past Surgical History Surgical History History of basal cell carcinoma (BCC) excision History of colonoscopy History of esophagogastroduodenoscopy (EGD) History of hernia repair x3 History of left cataract surgery History of Mohs micrographic surgery for skin cancer x2 History of prostate biopsy History of tonsillectomy History of wisdom tooth extraction Zenkers diverticulum removed Past Anesthesia History No Hx of Anesthesia Complications and No Family Hx of Anesthesia Complications History of PONV No Hx of PONV and No Hx of Motion Sickness Social History Smoking Status: Never smoker Hx Alcohol Use: Yes Alcohol type: wine alcohol intake frequency: a few times a week Hx Substance Use: No substance use type: does not use Physical Exam Vital Signs Last Vital Signs Temp 37.2 C 12/12/21 14:09 Pulse 71 12/12/21 14:09 Resp 18 12/12/21 14:09 BP 143/83 H 12/12/21 14:09 Pulse Ox 98 12/12/21 14:09 ENMT Mouth: no dentition abnormality Thyromental Distance: > or= 3.5 Finger Breadths Mallampati Class: II Neck normal visual inspection Respiratory normal respiratory effort Auscultation: lungs clear to auscultation bilaterally Cardiovascular Rate/Rhythm: regular rate and regular rhythm Psychiatric Orientation: alert Testing Laboratory Results 12/12/21 05:43 12/12/21 05:43 PT 10.3 Seconds (9.0-12.0) 12/09/21 17:55 INR 1.0 (0.9-1.1) 12/09/21 17:55 Urine Color Red 12/09/21 18:16 Urine Appearance Turbid (Clear) A 12/09/21 18:16 Urine pH (4.5-7.5) 12/09/21 18:16 Ur Specific Boaz 1.018 (1.000-1.030) 12/09/21 18:16 Urine Protein (Negative) 12/09/21 18:16 Urine Glucose (UA) (Negative) 12/09/21 18:16 Urine Ketones (Negative) 12/09/21 18:16 Urine Nitrite (Negative) 12/09/21 18:16 Ur Leukocyte Esterase (Negative) 12/09/21 18:16 Urine RBC >30 /hpf (0-4) H 12/09/21 18:16 Urine WBC 5-10 /hpf (0-5) H 12/09/21 18:16 Ur Epithelial Cells 0-5 /lpf (0-5) 12/09/21 18:16 12/09/21 22:02 Aerobic Blood Culture - Preliminary Blood No growth in Aerobic bottle after 48 hours. Anaerobic Blood Culture - Preliminary No growth in Anaerobic bottle after 48 hours. 12/09/21 21:58 Aerobic Blood Culture - Preliminary Blood No growth in Aerobic bottle after 48 hours. Anaerobic Blood Culture - Preliminary No growth in Anaerobic bottle after 48 hours. 12/09/21 18:16 Urine Culture - Final Urine,Straight Cath No growth - less than 1,000 colonies/mL.
[2021-12-12] MEDS ORDERED: LIDOCAINE 2% 2 ML VIAL/AMP(20MG/ML) INFIL ONE (14:43)
[2021-12-12] MEDS ORDERED: PROPOFOL IV EMULSION 10 MG/ML 20 ML VIAL IV ONE (14:43)
[2021-12-12] MEDS ORDERED: ONDANSETRON INJ 2 MG/ML 2 ML VIAL ONE (14:43)
[2021-12-12] MEDS ORDERED: ePHEDrine sulfate 50 MG/ML SYR ONE (16:07)
--- NOTE | 2021-12-12 16:07 | Operative Report ---
PG Post Operative Report Pre & Post Diagnosis Operation Date: 12/12/21 08:35 Pre-Op Diagnosis: Gross hematuria; Benign Prostatic Hyperplasia Post-Op Diagnosis: Gross hematuria; Benign Prostatic Hyperplasia I identified the patient and participated in the time-out.: Yes Procedure Operation Date: 12/12/21 08:35 Actual Procedures p Cystoscopy, Clot Evacuation, Transurethral Resection of Prostate(Not Applicable) - Nir Johnson MD Surgeon Terence Johnson MD Professor Of Religion none Estimated Blood Loss 25 Findings Consistent with Post-Op Diagnosis Specimens none Description of Procedure The patient was identified in the preoperative holding area, appropriate informed consents were reviewed and completed and the patient was transferred to the operative suite. Upon arrival, appropriate antibiotics and anesthesia were administered and the patient was placed in dorsal lithotomy position and prepped and draped in sterile fashion. To begin the case I passed a 27 Tamazight resectoscope with 30 degree lens and visual obturator. Initial inspection was extremely challenging because his urethra was filled with blood. I also found it extremely challenging to navigate through the prostate as this was extremely large with a very high bladder neck. With maximal reach of the scope I was barely able to visualize the luminal aspect of the bladder. I irrigated a significant mount of clot utilizing a Tom syringe which somewhat improved visualization and confirmed that he had a large intravesical median lobe which was the presumed source of his bleeding. I did also encountered a false passage near the apex of the prostate which was oozing, presumably from an earlier catheterization attempt. As the intravesical lobe seem to be the predominant problem and was limiting factor for inspection of the bladder I began to resect this area utilizing a button electrode. Initially I hope to be able to simply cauterize the bleeding areas and better visualize, however it quickly became apparent that I would need to resect this to allow full visualization and inspection. I proceeded to cautiously resect the entire intravesical median lobe. Ureteral orifices were identified and although this lobe came close to them and did not involve them. I obtained meticulous hemostasis from the resected tissue before turning my attention to the remainder of the prostate. I cauterized numerous prominent vessels along the lateral aspects as well as near the apex in particular around the area and noted to have a prior false passage. Hemostasis in the prostate was then excellent. Inspection of the bladder was conducted. He has an extremely heavily trabeculated bladder but no tumors or other gross abnormalities were appreciated. At that time I concluded the case and placed a 22 Tamazight three-way Mukherjee catheter with gentle CBI. He was reversed of anesthesia and taken to the recovery room in stable condition. There were no complications. I attest to the content of the Intraoperative Record and any orders documented therein. Any exceptions are noted below.
--- NOTE | 2021-12-12 16:35 | Anesthesiology Progress Note ---
Date of Service December 12, 2021 Anesthesia Post Procedure Vital Signs Vital Signs: Temp Pulse Pulse Resp BP BP Pulse Ox 12/12/21 16:20 68 16 146/87 H 100 12/12/21 16:10 71 14 160/88 H 100 12/12/21 16:01 36.1 C L 77 14 163/93 H 100 12/12/21 15:22 36.9 C 63 16 150/79 H 97 12/12/21 14:09 37.2 C 71 18 143/83 H 98 12/12/21 07:48 36.9 C 72 16 145/73 H 97 12/11/21 19:56 36.8 C 69 16 171/71 H 99 Pain Intensity Penis: Pain Intensity: 2 Transfer of Care Handoff Completed per policy Notes Mental Status: alert / awake / arousable and participated in evaluation Patient Amnestic to Procedure: Yes Nausea / Vomiting: adequately controlled Pain: adequately controlled Airway Patency, RR, SpO2: stable & adequate BP & HR: stable & adequate Hydration State: stable & adequate Anesthetic Complications: no major complications apparent and Pt Satisfied with anesthetic care
--- NOTE | 2021-12-12 19:47 | Urology Progress Note ---
Date of Service December 12, 2021 Assessment & Plan Admission and Anticipated Discharge Date Admission Date: December 11, 2021 Subjective Called to the floor because CBI stopped running and the nursing staff could not successfully irrigated and restore normal irrigation Upon arrival I evaluated no drainage through the tubing. I was able to irrigate and flush saline into the bladder but I could not withdraw any. After numerous efforts I decided to remove the current catheter and replaced with a 24 [place] hematuria catheter. This was inserted without difficulty. There is immediate drainage of approximately 500 cc of relatively clear urine with a few small clots. I irrigated the catheter extracted several other small clots. CBI was reinitiated and was running nicely with a light pink color on moderate speed CBI. Results & Data ([facility]) Vital Signs (Past 12 Hours) Vital Signs Temp Pulse Pulse Pulse Resp BP BP 12/12/21 19:14 37.0 C 83 18 150/89 H 12/12/21 18:15 85 16 142/88 H 12/12/21 17:45 75 16 152/91 H 12/12/21 17:15 36.8 C 75 16 153/84 H 12/12/21 17:00 77 20 144/86 H 12/12/21 16:50 36.3 C L 71 20 148/86 H 12/12/21 16:40 72 20 150/91 H 12/12/21 16:30 74 20 156/91 H 12/12/21 16:20 68 16 146/87 H 12/12/21 16:10 71 14 160/88 H 12/12/21 16:01 36.1 C L 77 14 163/93 H 12/12/21 15:22 36.9 C 63 16 150/79 H 12/12/21 14:09 37.2 C 71 18 143/83 H 12/12/21 07:48 36.9 C 72 16 145/73 H Pulse Ox 12/12/21 19:14 97 12/12/21 18:15 95 12/12/21 17:45 93 12/12/21 17:15 93 12/12/21 17:00 96 12/12/21 16:50 97 12/12/21 16:40 98 12/12/21 16:30 100 12/12/21 16:20 100 12/12/21 16:10 100 12/12/21 16:01 100 12/12/21 15:22 97 12/12/21 14:09 98 12/12/21 07:48 97 PG Care Time/CCT Total # of Minutes Spent Total Time Spent with Patient: Total time spent is greater than 50% in coordination of care (as documented) at patient's floor/unit and/or counseling patient: Coding Level of Care Code 65321 Subseq Hosp Care Lvl 2 Comment Catheter placement and irrigation
[2021-12-12] MEDS: METOPROLOL TARTRATE 25 MG TAB PO SCH (20:26)
[2021-12-12] MEDS: TAMSULOSIN HCL 0.4 MG CAP PO SCH (20:27)
[2021-12-13 06:59] LABS: Basophils # (auto) 0.01 K/uL (0-0.2); Basophils % (auto) 0.1 %; Eosinophils # (auto) 0.07 K/uL (0-0.5); Eosinophils % (auto) 0.9 %; Hematocrit (blood only) 30.1 % (42-52); Hemoglobin 9.8 g/dL (14.0-18.0); Immature Granulocytes # (auto) 0.01 K/uL (0.00-0.02); Immature Granulocytes % (auto) 0.1 %; Lymphocytes # (auto) 0.95 K/uL (1.2-3.4); Lymphocytes % (auto) 12.1 %; Mean Corpuscular Hemoglobin 30.8 pg (25-34); Mean Corpuscular Hgb Conc 32.6 g/dL (32-36); Mean Corpuscular Volume 94.7 fL (80-100); Mean Platelet Volume 10.3 fL (7.4-10.4); Monocytes # (auto) 0.52 K/uL (0.11-0.59); Monocytes % (auto) 6.6 %; Neutrophils # (auto) 6.27 K/uL (1.4-6.5); Neutrophils % (auto) 80.2 %; Platelet Count 204 K/uL (130-400); RDW Coefficient of Variation 14.3 % (11.5-14.5); RDW Standard Deviation 49.2 fL (36.4-46.3); Red Blood Count 3.18 M/uL (4.7-6.1); White Blood Count 7.83 K/uL (4.8-10.8)
[2021-12-13 07:21] LABS: Calcium 7.8 mg/dl (8.5-10.1); Creatinine Clr Calc Pharmacy 74.2 ml/min; Est GFR (African American) 98.3 ml/min; Est GFR (Non-African American) 84.8 ml/min; Potassium 3.8 mmol/L (3.5-5.1)
[2021-12-13] MEDS: CEFDINIR 300 MG CAP PO SCH ×2 (08:22→21:52)
[2021-12-13] MEDS: SODIUM CHLORIDE 0.9% 1000ML 1,000 ML IV SCH (08:22)
[2021-12-13] MEDS: METOPROLOL TARTRATE 25 MG TAB PO SCH ×2 (08:48→21:50)
--- NOTE | 2021-12-13 09:56 | Urology Progress Note ---
Date of Service December 13, 2021 Assessment & Plan (1) Acute urinary retention: (2) Gross hematuria: (3) Benign prostatic hyperplasia with urinary obstruction: Plan: s/p TURP, clot evac, and fulguration yesterday - cont slow CBI this AM - clamp later today if he remains clear - ideally, I would like to gradually wean from CBI and potentially offer a voiding trial prior to d/c home from the hospital - cont to hold anitcoagulation for now Admission and Anticipated Discharge Date Admission Date: December 11, 2021 Subjective No major issues last night after catheter change no pain CBI ran at a slow rate without incident labs stable this AM Physical Exam Physical Exam: relatively clear urine on slow CBI Results & [facility]) Vital Signs (Past 12 Hours) Vital Signs Temp Pulse Resp BP Pulse Ox 12/13/21 07:41 37.2 C 74 16 114/69 93 12/13/21 02:37 36.8 C 77 16 92/51 L 95 PG Care Time/CCT Total # of Minutes Spent Total Time Spent with Patient: Total time spent is greater than 50% in coordination of care (as documented) at patient's floor/unit and/or counseling patient: Coding Level of Care Code 71634 Subseq Hosp Care Lvl 2 Diagnoses Acute urinary retention R33.8 Gross hematuria R31.0 Benign prostatic hyperplasia with urinary obstruction N40.1; N13.8
[2021-12-13] MEDS ORDERED: bisacodyL 10 MG SUPP PR STA (11:40)
--- NOTE | 2021-12-13 11:45 | Hospitalist Progress Note ---
Date of Service December 13, 2021 Assessment & Plan (1) Gross hematuria: Plan: Gross hematuria/BPH with LUTS/bilateral hydroureteronephrosis secondary to bladder distention s/p cystoscopy and TURP Urine C&S noting no growth Continue Tamsulosin 0.4 mg at bedtime Continue Dao catheter w CBI as ordered by urology Continue holding anticoagulants (Eliquis on hold) Transitioned to Cefdinir from Rocephin (despite negative culture as I do continue to suspect could've had superimposed infection), complete total of 7 days Urology following (2) Benign prostatic hyperplasia with urinary obstruction: Plan: s/p turp as noted above Continue tamsulosin (3) Bilateral hydronephrosis: Plan: Secondary to bladder outlet obstruction (4) Obstructive sleep apnea: Plan: Continue cpap w/ baseline setting 6 cmH2O (5) Atrial fibrillation: Plan: Atrial fibrillation/hypertension Hold HCTZ and Eliquis Appears admitting doc increased Lopressor d/t RVR At this time, that has resolved and he now has CVR Adjust dose back to his 12.5mg at HS as he has requested and monitor HR (6) Hypertension: Plan: Well controlled on current regimen Plan: Interventions as outlined above CBC in the morning Continue CBI as ordered and catheter management all per urology Continue holding Eliquis Out of bed as tolerated Cap IV fluids D/C planning -- anticipate should be able to go home tomorrow Admission and Anticipated Discharge Date Admission Date: December 11, 2021 Supervising Physician Co-Signing Physician Notes chart reviewed, case d/w Coral Proctor PAC. as above Subjective Patient seen on rounds today. He is s/p cystoscopy with TURP done on 12/[address] Johnson. Currently has CBI running, has no complaints of pain. He denies cp or dyspnea. Had to have catheter changed last night but no issues since then. Review of Systems Review of Systems: no distress and fatigue no headache, no visual changes no speech or swallowing issues no chest pain, pressure or palpitations no shortness of breath, cough or wheezes no abdominal pain, nausea or vomiting, diarrhea or constipation dao in place, +hematuria no focal joint pain or swelling no back pain, CVA tenderness or radicular pain no bruising, bleeding or rashes no focal signs of weakness or numbness or altered sensation no complaints of anxiety or depression. Physical Exam Physical Exam: GENERAL: 76 yo well-developed, well-nourished elderly WM. NAD. LUNGS: Clear to auscultation bilaterally. CARDIOVASCULAR: Regular rate and rhythm. ABDOMEN: Soft, non-tender and non-distended. BS normal x 4 quad. Minimal tenderness with palpation of suprapubic region. : dao in place, pink urine noted in tubing with some clots present. Bright red bloody urine in dao bag. EXTREMITIES: No edema. Non-tender. Peripheral pulses +2/4. NEUROLOGIC: A&O x3. PSYCHIATRIC: Cooperative. Appropriate mood and affect. SKIN: Warm, dry, intact. No rashes or lesions. Results & Data Results & Data ([facility]) Vital Signs (Past 12 Hours) Vital Signs Temp Pulse Resp BP Pulse Ox 12/13/21 07:41 37.2 C 74 16 114/69 93 12/13/21 02:37 36.8 C 77 16 92/51 L 95 Laboratory Results 12/13/21 06:28 12/13/21 06:28 PG Care Time/CCT Total # of Minutes Spent Total Time Spent with Patient: Total time spent is greater than 50% in coordination of care (as documented) at patient's floor/unit and/or counseling patient: Coding Level of Care Code 95309 Subseq Hosp Care Lvl 2 Diagnoses Gross hematuria R31.0 Benign prostatic hyperplasia with urinary obstruction N40.1; N13.8 Bilateral hydronephrosis N13.30 Obstructive sleep apnea G47.33 Atrial fibrillation I48.91 Hypertension I10
[2021-12-13] MEDS: DOCUSATE SODIUM 100 MG CAP PO SCH ×2 (12:28→21:51)
[2021-12-13] MEDS: TAMSULOSIN HCL 0.4 MG CAP PO SCH (21:52)
[2021-12-14 06:26] LABS: Basophils # (auto) 0.01 K/uL (0-0.2); Basophils % (auto) 0.1 %; Eosinophils # (auto) 0.07 K/uL (0-0.5); Eosinophils % (auto) 0.9 %; Hematocrit (blood only) 28.7 % (42-52); Hemoglobin 9.4 g/dL (14.0-18.0); Immature Granulocytes # (auto) 0.01 K/uL (0.00-0.02); Immature Granulocytes % (auto) 0.1 %; Lymphocytes # (auto) 1.31 K/uL (1.2-3.4); Lymphocytes % (auto) 17.5 %; Mean Corpuscular Hemoglobin 30.8 pg (25-34); Mean Corpuscular Hgb Conc 32.8 g/dL (32-36); Mean Corpuscular Volume 94.1 fL (80-100); Monocytes # (auto) 0.62 K/uL (0.11-0.59); Monocytes % (auto) 8.3 %; Neutrophils # (auto) 5.47 K/uL (1.4-6.5); Neutrophils % (auto) 73.1 %; Platelet Count 184 K/uL (130-400); RDW Coefficient of Variation 14.3 % (11.5-14.5); RDW Standard Deviation 49.3 fL (36.4-46.3); Red Blood Count 3.05 M/uL (4.7-6.1); White Blood Count 7.49 K/uL (4.8-10.8)
[2021-12-14 06:47] LABS: BUN Creatinine Ratio 13.6 (10-20); Calcium 7.9 mg/dl (8.5-10.1); Creatinine Clr Calc Pharmacy 72.5 ml/min; Est GFR (African American) 97.4 ml/min; Potassium 3.6 mmol/L (3.5-5.1)
[2021-12-14] MEDS: DOCUSATE SODIUM 100 MG CAP PO SCH (08:12)
[2021-12-14] MEDS: CEFDINIR 300 MG CAP PO SCH (08:12)
--- NOTE | 2021-12-14 08:49 | Urology Progress Note ---
Date of Service December 14, 2021 Assessment & Plan (1) Acute urinary retention: (2) Gross hematuria: (3) Benign prostatic hyperplasia with urinary obstruction: Plan: - POD #2 s/p TURP, clot evac, and fulgurationwith Dr. Johnson. - Overall feeling well. - Remains afebrile, vitals stable. - Labs reviewed - White count and creatinine normal, hemoglobin 9.4 - Urine is clear yellow on slow CBI. - Will clamp CBI and continue to monitor. - Maintain Mukherjee catheter. Would ideally like to offer a voiding trial prior to d/c home from the hospital given urine remains clear. - Continue supportive care and antibiotic therapy. - Continue to hold anticoagulation for now. - Will continue to follow. Admission and Anticipated Discharge Date Admission Date: December 11, 2021 Subjective Pt examined at bedside this AM. Awake, resting in bed on arrival. No issues with the catheter overnight. Mukherjee intact, draining clear yellow urine with CBI on slow drip. No fevers. Denies pain. Reports mild discomfort at catheter insertion site. Overall doing well. Review of Systems Constitutional: as per Subjective / HPI Genitourinary: + as per Subjective / HPI Physical Exam Constitutional: no acute distress Respiratory: normal respiratory effort; no respiratory distress and no labored breathing Neurologic: moves all extremities and awake Psychiatric: Orientation: alert and oriented x 3 Genitourinary: Mukherjee catheter intact, draining clear yellow urine with CBI on slow drip Results & Data ([facility]) Vital Signs (Past 12 Hours) Vital Signs Temp Pulse Pulse Resp BP Pulse Ox 12/14/21 07:38 37.2 C 76 16 114/74 93 12/13/21 21:00 36.9 C 76 18 133/80 98 PG Care Time/CCT Total # of Minutes Spent Total Time Spent with Patient: Total time spent is greater than 50% in coordination of care (as documented) at patient's floor/unit and/or counseling patient: Coding Level of Care Code 36918 Subseq Hosp Care Lvl 2 Diagnoses Acute urinary retention R33.8 Gross hematuria R31.0 Benign prostatic hyperplasia with urinary obstruction N40.1; N13.8
--- NOTE | 2021-12-14 16:43 | Discharge Summary ---
Date of Service December 14, 2021 Admission HPI Per Admitting Provider The patient is a 76-year-old male with a past medical history including atrial fibrillation, right inguinal hernia, obstructive sleep apnea, hypertension and BPH with LUTS. He presents as noted above with 3 to 4 days of persistent and worsening difficulty urinating and having gross blood in urine. Dao catheter was placed in the emergency department, and is draining darkly colored bloody urine. Patient was assessed by urology while in the emergency department, and they will follow during admission. Principal Diagnosis 1. Bladder outlet obstruction 2. Gross hematuria 3. BPH w/ outlet obstruction s/p TURP 4. Questionable UTI Discharge Exam GENERAL: 76 yo well-developed, well-nourished elderly WM. NAD. LUNGS: Clear to auscultation bilaterally. CARDIOVASCULAR: Regular rate and rhythm. ABDOMEN: Soft, non-tender and non-distended. BS normal x 4 quad. : dao w/ CBI running, ashish colored urine in the bag w/ trace hematuria present. EXTREMITIES: No edema. Non-tender. Peripheral pulses +2/4. NEUROLOGIC: A&O x3. PSYCHIATRIC: Cooperative. Appropriate mood and affect. SKIN: Warm, dry, intact. No rashes or lesions. Discharge Data Allergies Allergy/AdvReac Type Severity Reaction Status Date / Time No Known Allergies Allergy Unknown Verified 12/09/21 18:21 Consultations 12/09/21 21:35 Consult Urology Stat Procedures Performed Operation Date: 12/12/21 08:35 Actual Procedures p Clot Evacuation, Transurethral Resection of Prostate(Not Applicable) - Nir Johnson MD s Cystoscopy(Not Applicable) - Nir Johnson MD Ordered Studies 12/14/21 06:07 12/14/21 06:07 Abdomen/Pelvis CT 12/09/21 17:49 CT SCAN OF THE ABDOMEN AND PELVIS WITHOUT IV CONTRAST CLINICAL HISTORY: Lower abdominal pain. Urinary retention. Hematuria. COMPARISON STUDY: Abdominal CT dated 05/30/2012. TECHNIQUE: CT scan of the abdomen and pelvis is performed from the lung bases to the proximal femora. Images are reviewed in the axial, sagittal, and coronal planes. IV contrast was not administered for this examination. A dose lowering technique was utilized adhering to the principles of ALARA. CT DOSE: 882.51 mGycm FINDINGS: Lung bases: The heart is enlarged and without pericardial effusion. The lung bases are clear noting dependent scarring/atelectasis. There is a tiny hiatal hernia. Liver: The unenhanced liver is normal in size, contour, and attenuation. There is no intrahepatic biliary ductal dilatation. Gallbladder: Unremarkable. Spleen: Normal in size and attenuation. Pancreas: The unenhanced pancreas is normal in size. Scattered calcifications suggest chronic pancreatitis. Adrenal glands: Unremarkable. Kidneys: The unenhanced kidneys are normal in size. There is moderate right and mild to moderate left hydroureteronephrosis. The ureters are distended to the level of the bladder. No hyperdense debris or calculi are identified within the renal pelvis bilaterally or along the course of the ureters. There is no evidence of contour deforming renal mass lesion. Abdominal vasculature: The abdominal aorta is normal in course and caliber noting scattered foci of atherosclerotic calcification. Bowel: There is mild to moderate colonic fecal retention. No bowel obstruction is identified. The appendix is well-visualized and normal. Peritoneum: There is no intraperitoneal free air or abdominal ascites. Lymphadenopathy: None. Pelvic viscera: The bladder is distended, measuring 15.5 cm cranial caudal length. The bladder is filled with hyperdense material which likely represents blood clots. A Dao catheter is in place. The bladder wall appears thickened and trabeculated indicating chronic outlet obstruction. A 14 mm bladder diverticulum is seen posteriorly on the left. The prostate gland is markedly enlarged and heterogeneous, measuring 6.7 cm in transverse diameter. There is evidence of previous bilateral inguinal herniorrhaphy. Skeletal structures: The skeletal structures are osteopenic. There is mild lumbosacral spondylosis. No lytic or blastic lesions are seen. IMPRESSION: 1. The bladder is markedly distended and filled with hyperdense material that is typical for blood clots. Follow-up with urology is recommended. 2. Marked prostatomegaly with evidence of chronic bladder outlet obstruction. 3. A Dao catheter is in place. 4. Right greater than left-sided hydroureteronephrosis is likely secondary to bladder distention. 5. Additional findings as above. ACT 112: Negative or not required by law. Electronically signed by: Anson Luu M.D. 12/09/2021 7:22 PM Hospital Course (1) Gross hematuria: Gross hematuria/BPH with LUTS/bilateral hydroureteronephrosis secondary to bladder distention s/p cystoscopy w/ TURP on 12/12/[address] Johnson. Dao placed in ER, empirically started on IV antibiotics for possible infection Urine C&S finalized with no growth noted Continue Tamsulosin 0.4 mg at bedtime Continue Dao catheter w CBI as ordered by urology--CBI clamped today Continue holding anticoagulants (Eliquis on hold)--can resume on Sunday 12/17 if urine remains pale pink w/o clots Transitioned to Cefdinir from Rocephin (despite negative culture as I do continue to suspect could've had superimposed infection), complete total of 7 days Urology following, attempted voiding trial with Dao removal this afternoon at noon Failed trial, dao to be reinserted today (12/14) with 18 romansh coude, plan to attach leg bag and will f/u with urology on Monday 12/18 (2) Benign prostatic hyperplasia with urinary obstruction: s/p turp as noted above Continue tamsulosin As above (3) Bilateral hydronephrosis: Secondary to bladder outlet obstruction (4) Obstructive sleep apnea: Continue cpap w/ baseline setting 6 cmH2O (5) Atrial fibrillation: Atrial fibrillation/hypertension Hold HCTZ and Eliquis Appears admitting doc increased Lopressor d/t RVR At this time, that has resolved and he now has CVR Adjusted back to his home dose (6) Hypertension: Well controlled on current regimen At this time patient is felt to be medically and hemodynamically stable for discharge. Would advise completion of course of antibiotics as outpatient, cefdinir, as prescribed. Continue tamsulosin at at bedtime. Remaining medications can be resumed as prescribed prior to hospitalization. Follow-up with urology as scheduled. Maintain Dao catheter. Eliquis can be resumed on 12/17/2021 as long as urine remains pale pink and essentially clear without clots or grossly bloody urine. Contact urology if any questions regarding resumption of Eliquis. Advise follow-up with primary care within 1 week of discharge. Above plan of care has been discussed and agreed upon with Annelise Martin who has also seen this patient prior to discharge. Total Time Total Time Spent Total Time Spent (In Minutes): >30 minutes Discharge Plan Discharge Items Patient Disposition: Home - Self-Care Reason For Visit: GROSS HEMATURIA Discharge Diagnosis: Blood in urine, suspected urinary tract infection Enlarged prostate status post surgical resection Activity: Resume your previous activity Non-emergency contact: Primary Care Provider and Urologist Call non-emergency contact if: you have any medication questions Follow-up/Referrals: Leland Sterling MD [Physician] - 12/28/21 4:40 pm Byron Ortiz MD [Primary Care Provider] - Diet: Regular Addtl Attending Provider Instructions: You were hospitalized for difficulty urinating as well as blood in your urine. You were started on an antibiotic called Rocephin in the event that your symptoms were related to urinary tract infection and your Eliquis was stopped. Unfortunately, despite antibiotics, you continued to have obvious blood in your urine. Urology performed cystoscopy on 12/12 which demonstrated that your p rostate was enlarged and required surgical resection and there were bleeding blood vessels that required cautery to stop. You have been started on a medication called Flomax which helps relax the smooth muscle in your genitourinary tract to make it easier for you to void. You will need to continue this medication, likely indefinitely. You were continued on antibiotics which were transitioned from Rocephin to an oral medicine called Cefdinir. Of note, you did not grow any specific bacteria on your urine culture. You received irrigation through your urinary catheter which was stopped on 12/14 with subsequently removal of the bladder catheter. You are to follow up with your primary care physician within 1 week of discharge. Follow up with urology as scheduled. You can resume your Eliquis as outlined below, if you have any questions regarding resuming this medication, contact your urologist. Addtl Area Forester Provider Instructions: Please call the urology office at [phone] with any questions, concerns or need to reschedule appointments for any reason. We are happy to assist you. You can resume your Eliquis on 12/17 given your urine remains clear to light pink in color. Please contact our office with any questions or concerns. Tips for your recovery at home: Dont be alarmed by brownish or reddish blood or clots in your urine. This is a result of the procedure. This may occur off and on for weeks to months after the procedure but should continue to improve. Drink plenty of fluids during the day (enough to keep your urine very light colored). This will help keep a healthy flow of urine. Do not lift >25 lbs until your followup Avoid constipation. Please use a stool softener (Colace) for the first two weeks after your procedure Be sure to finish the antibiotics as prescribed. When to call [facility] Urology at [phone]: Your urine contains heavy blood clots You are constantly leaking urine Fever of 101F or higher, chills, nausea, or vomiting Your pain is not relieved with medication Pending Studies at Discharge: No Stand-Alone Forms: [facility] [place] [employer], Smoking Cessation Medications and DC Order Prescriptions: New tamsulosin 0.4 mg Capsule 0.4 mg PO HS Qty: 30 RF: 0 cefdinir 300 mg Capsule 300 mg PO BID Qty: 3 RF: 0 Continued metoprolol tartrate 25 mg tablet 25 mg PO QPM RF: 0 hydrochlorothiazide 12.5 mg tablet 12.5 mg PO QAM RF: 0 multivitamin Tablet 1 tab PO QAM RF: 0 Eliquis 5 mg Tablet 5 mg PO BID RF: 0 Discharge Orders: Discharge Order (Routine); Ordered 12/14/21 Ordered By: Joelle Proctor Admission Data Admit Date/Time: 12/11/21 12:53 Attending Provider: Johnny Martin Admit Provider: Cecilio Fisher Primary Care Provider: Byron Ortiz Other Providers: Juan Antonio Agosto ; Cecilio Fisher Other Interventions: Discharge Summary Assessment (RN) Last Done: 12/14/21 18:17 Supervising Physician Co-Signing Physician Notes I personally examined the patient and verified all shepherd points of history and exam, discussed case, and agree with decision making withCoral Proctor PAC Feels up to going home. Familiar with home Dao. No other complaints. Vitals noted, in general he is awake and alert pleasant no distress. Home with Dao, otherwise as above Coding Level of Care Code D/C DAY MANAGEMENT >30 MINS Diagnoses Gross hematuria R31.0 Benign prostatic hyperplasia with urinary obstruction N40.1; N13.8 Bilateral hydronephrosis N13.30 Obstructive sleep apnea G47.33 Atrial fibrillation I48.91 Hypertension I10
== END 2021-12-14 18:42 | disposition home or self-care (01) | DRG 666 ==
LOC: 3N 17:20 → ED 17:20 → SUATTDRO 22:30 → 3N 23:41 → SUATTDRO 12-11 12:53

== ENCOUNTER 2024-08-18 06:59 | Observation (INO) ==
--- NOTE | 2024-08-13 09:40 | Anesthesiology Consultation ---
Date of Service August 13, 2024 Assessment & Plan (1) Encounter for pre-operative examination: - awaiting confirmed 08/13/24 EKG. - cardiology office visit 11/06/23 [facility]: "...paroxysmal atrial fibrillation...off anticoagulation due to hematuria. Premature ventricular ectopic beats, asymptomatic with preserved systolic function..intermittent RBBB. Mild aortic regurgitation. Mildly enlarged aortic root and proximal ascending aorta. Obstructive sleep apnea, CPAP therapy...acquired esophageal diverticulum...feeling well...regular rhythm on exam...follow up 1 year..." - Per curriculum and assessment director on 08/11/24: No known infectious disease contacts, current infectious disease symptoms in past 10 days or COVID positive test result in the past 30 days. Chart Review Chart Review: Pending: Refer to Additional Notes / Consult section and Patient NOT seen in Pre Admission Testing History Surgery Operation Date: 08/18/24 08:30 Proposed Procedures p TURP (Transurethral Resection of Prostate) - Terence Johnson MD Height/Weight Height: 5 ft 8 in Weight: 74.389 kg Allergies Allergy/AdvReac Type Severity Reaction Status Date / Time No Known Allergies Allergy Unknown Verified 08/11/24 07:34 Medications Home Medications Medication Instructions Recorded Confirmed Last Taken metoprolol tartrate 25 mg tablet 25 mg PO QAM 09/15/19 08/11/24 12/08/21 hydrochlorothiazide 12.5 mg tablet 12.5 mg PO QAM 04/26/21 08/11/24 12/08/21 multivitamin 1 tab PO BID 12/09/21 08/11/24 12/09/21 triamterene 37.5 1 cap PO QAM 07/02/24 08/11/24 Unknown mg-hydrochlorothiazide 25 mg capsule ascorbic acid (vitamin C) 500 mg 500 mg PO QAM 08/11/24 08/11/24 Unknown tablet (Vitamin C) Past Medical History Medical History Atrial fibrillation intermittent--follows with Dr. Matta. not taking anticoagulants or aspirin due to his prostate bleeding. no cardioversion needed in the past, states he converts on his own normally. no recent issues. BPH (benign prostatic hyperplasia) Constipation History of anesthesia reaction pt states that after hernia sx's he has had difficulty urinating, has had to have a catheter placed Hx of basal cell carcinoma Hx of melanoma of skin Hypertension Macular degeneration of right eye Prostatitis hx Sleep apnea cpap at night Urinary urgency Zenkers diverticulum hx - no issues recently Past Family History Family History Other No family history of adverse response to anesthesia Denies family history of Prostate cancer Past Surgical History Surgical History H/O right cataract extraction History of basal cell carcinoma (BCC) excision History of colonoscopy History of esophagogastroduodenoscopy (EGD) History of hernia repair x3 History of left cataract surgery History of Mohs micrographic surgery for skin cancer x2 History of prostate biopsy History of tonsillectomy History of wisdom tooth extraction S/P removal of Zenker's diverticulum at [facility] S/P TURP (11/2021) Social History Smoking Status: Never smoker Do You Dip or Chew Tobacco: No Hx Alcohol Use: Yes Alcohol type: wine alcohol intake frequency: a few times a week Hx Substance Use: No substance use type: does not use Lab Results Anesthesia Preop Results Results Anesthesia Widget: WBC 7.48 K/ul (4.8-10.8) 08/10/24 Hgb 14.7 g/dl (14.0-18.0) 08/10/24 Hct 43.1 % (42.0-52.0) 08/10/24 Plt 236 K/uL (130-400) 08/10/24 Na 138 mmol/L (136-145) 08/10/24 K 3.3 mmol/L (3.5-5.1) L 08/10/24 Cl 100 mmol/L (98-107) 08/10/24 CO2 31 mmol/L (21-32) 08/10/24 BUN 18 mg/dl (6-23) 08/10/24 Creat 1.09 mg/dl (0.6-1.4) 08/10/24 Glucose Level 94 mg/dl (70-99(Fasting)) 08/10/24 Urine Appearance Clear 07/02/24 Testing Chest X-Ray Date: 08/10/24 No acute process. Echocardiogram Date: 05/17/22 EF 55-59% Mild cLVH Mildly enlarged LA Grade I diastolic dysfunction Mild aortic valve regurgitation Mildly enlarged aortic root and proximal ascending aorta Other Testing Abdomen pelvis CT 07/06/24 1. Prostatomegaly with evidence of chronic bladder outlet obstruction. 2. There is a moderate amount of hemorrhage within the urinary bladder lumen which may account for the mild right-sided hydronephrosis. 3. No renal or ureteral calculi or upper urothelial lesion identified. 4. 5.9 cm right-sided renal sinus cyst. 5. Additional incidental findings as above Carotid doppler 06/29/20 < 50% stenosis ICAs bilat
[~2024-08-18 06:59] MED LIST changes: -ASPI81TA21 PO; -CLBCR15 EXT; +DEXAMETHASONE SOD INJ 4 MG/ML VIAL ONE; +LIDOCAINE 2% 2 ML VIAL/AMP(20MG/ML) INFIL ONE; -LPR25 PO; +MIDAZOLAM HCL 1 MG/ML 2ML VIAL ONE; -MULT-506 PO; +ONDANSETRON INJ 2 MG/ML 2 ML VIAL ONE; +PROPOFOL IV EMULSION 10 MG/ML 20 ML VIAL IV ONE; -TAMS0.4C38 PO; +fentaNYL citrate PF 100 MCG/2 ML VIAL ONE
--- NOTE | 2024-08-18 07:21 | History & Physical Bridge Note ---
Date of Service August 18, 2024 History & Physical Bridge Note I have examined the patient, reviewed the History & Physical and in the interval since the performance of the History & Physical I have noted the following changes of clinical significance: no changes noted
[2024-08-18] MEDS: LR 15ML/HR IV SCH (07:50)
[2024-08-18] MEDS ORDERED: ePHEDrine sulfate 50 MG/ML AMP IV PRN (07:56)
[2024-08-18] MEDS ORDERED: ONDANSETRON INJ 2 MG/ML 2 ML VIAL IV PRN (07:56)
[2024-08-18] MEDS ORDERED: fentaNYL citrate PF 100 MCG/2 ML VIAL IV PRN (07:56)
[2024-08-18] MEDS ORDERED: ATROPINE SULFATE 0.1 MG/ML 10ML SYR IV PRN (07:56)
[2024-08-18] MEDS: cefTRIAXone SODIUM 1,000 MG MINI-B 50 ML IV SCH (08:47)
[2024-08-18] MEDS ORDERED: ePHEDrine sulfate 50 MG/5 ML SYR ONE (09:25)
--- NOTE | 2024-08-18 10:41 | Operative Report ---
PG Post Operative Report Pre & Post Diagnosis Operation Date: 08/18/24 08:35 Pre-Op Diagnosis: Benign Prostatic Hyperplasia Post-Op Diagnosis: Benign Prostatic Hyperplasia I identified the patient and participated in the time-out.: Yes Procedure Operation Date: 08/18/24 08:35 Actual Procedures p Transurethral Resection of Prostate(Not Applicable) - Terence Johnson MD Surgeon Terence Johnson MD [employer] none Estimated Blood Loss 10 Findings Consistent with Post-Op Diagnosis Specimens Prostate chips for routine pathology Description of Procedure The patient was identified in the preoperative holding area, appropriate informed consents were reviewed and completed and the patient was transferred to the operative suite. Upon arrival, appropriate antibiotics and anesthesia were administered and the patient was placed in dorsal lithotomy position and prepped and draped in sterile fashion. To begin the case I attempted to pass a 27 Syrian resectoscope, however his meatus would not accommodate this so utilized male urethral sounds to dilate from 22-30 Syrian. This allowed accommodation of the scope and the scope was advanced to the urethra without difficulty. He has no strictures. He has a very large prostate with substantial lateral lobe obstruction and a significant amount of uniform intravesical intrusion creating an intravesical median lobe. He has a very heavily trabeculated bladder which was somewhat difficult to assess upon initial entry because of the size of the prostate. With careful evaluation of the lateral aspects of the prostate, I was able to incise the bladder neck at 5 and 7:00 utilizing a loop electrode. I then resected the intravesical posterior aspect of the prostate which was the most substantial portion. This flatten the bladder neck and allowed visualization of the UOs. There was no encroachment upon the UOs during the resection. I then proceeded to resect the left lateral lobe as well as the right lateral lobe. There was a substantial amount of anterior tissue that was quite redundant. I resected this tissue as well. I worked my way through the length of the prostate until he reached the apex and resected apical tissue. A substantial amount of tissue was evacuated out of the bladder and passed off the table. I then obtained hemostasis meticulously utilizing both a loop and a button electrode. I reevaluated the bladder on numerous occasions to confirm all chips have been evacuated. I also looked in each shallow diverticuli to determine if there were any abnormalitiesno abnormalities of the bladder were visualized. Hemostasis was excellent. I concluded the case by placing a 22 Syrian Mukherjee catheter with 30 cc of water in the balloon. He was reversed of anesthesia and taken to the recovery room in stable condition. There were no complications. I attest to the content of the Intraoperative Record and any orders documented therein. Any exceptions are noted below.
[2024-08-18] MEDS ORDERED: ACETAMINOPHEN 325 MG TAB PO PRN (11:53)
[2024-08-18] MEDS: MULTIVITAMIN TAB PO SCH (12:55)
[2024-08-18] MEDS: SODIUM CHLORIDE 0.9% 1,000 ML IV SCH (12:56)
[2024-08-19 06:35] LABS: Hemoglobin 12.5 g/dl (14.0-18.0); Mean Corpuscular Hemoglobin 31.3 pg (25.0-34.0); Mean Corpuscular Hgb Conc 33.8 g/dL (32.0-36.0); Mean Corpuscular Volume 92.7 fL (80.0-100.0); Mean Platelet Volume 10.4 fL (9.4-12.4); Platelet Count 212 K/uL (130-400); RDW Coefficient of Variation 13.3 % (11.5-14.5); RDW Standard Deviation 45.5 fL (36.4-46.3); Red Blood Count 3.99 M/uL (4.70-6.10); White Blood Count 10.49 K/ul (4.8-10.8)
[2024-08-19 06:59] LABS: BUN Creatinine Ratio 14.3 (10-20); Calcium 8.4 mg/dl (8.6-10.3); Creatinine Clr Calc Pharmacy 64.7 ml/min; Potassium 3.4 mmol/L (3.5-5.1)
[2024-08-19] MEDS: cefTRIAXone SODIUM 1,000 MG/50 ML BAG IV SCH (08:20)
[2024-08-19] MEDS: hydroCHLOROthiazide 25 MG TAB PO SCH (08:21)
[2024-08-19] MEDS: TRIAMTERENE/HCTZ 37.5/25MG TAB PO SCH (08:21)
[2024-08-19] MEDS: METOPROLOL TARTRATE 25 MG TAB PO SCH (08:22)
[2024-08-19] MEDS: ASCORBIC ACID 500 MG TAB PO SCH (08:22)
--- NOTE | 2024-08-19 09:32 | Urology Progress Note ---
Date of Service August 19, 2024 Assessment & Plan (1) Benign prostatic hyperplasia with urinary obstruction: Plan Substantial prostatic enlargement with hematuria and urinary retention Status post TURP yesterday Plan for voiding trial this morning and discharge Admission and Anticipated Discharge Date Admission Date: August 18, 2024 Subjective No issues overnight Urine has remained relatively clear No pain or discomfort Plan for voiding trial this morning and discharge home Results & Data Vital Signs (Past 12 Hours) Vital Signs Temp Pulse Resp BP Pulse Ox O2 Del Method 08/19/24 07:02 36.5 C 64 18 131/77 99 Room Air, CPAP 08/19/24 03:37 36.7 C 61 18 133/87 98 CPAP 08/18/24 23:29 36.6 C 61 18 143/77 H 98 Room Air PG Care Time/CCT Total # of Minutes Spent Total Time Spent with Patient: Total time spent is greater than 50% in coordination of care (as documented) at patient's floor/unit and/or counseling patient: Coding Level of Care Code None Diagnoses Benign prostatic hyperplasia with urinary obstruction N40.1; N13.8
[2024-08-19 11:25] VITALS: BP 144/93; PULSE 75; RESP 16; TEMP 99; O2SAT 98
--- NOTE | 2024-08-19 16:28 | Discharge Summary ---
Date of Service August 19, 2024 Admission HPI Per Admitting Provider 79-year-old male with significant BPH with intermittent hematuria and urinary retention admitted for transurethral resection of the prostate Admission Exam Per Admitting Provider Constitutional well developed and well nourished Neck neck nontender Respiratory normal respiratory effort; no respiratory distress and does not use accessory muscles Cardiovascular Rate/Rhythm: regular rate Vessels: radial pulses present Extremities: no edema Gastrointestinal (Abdomen) Inspection/Auscultation: abdomen normal to inspection Percussion/Palpation: abdomen soft; abdomen nontender and no guarding Musculoskeletal Head/Neck/Chest: normocephalic and head atraumatic Extremities: extremities normal to inspection Skin no rashes and no lesions Trauma: no evidence of skin trauma Neurologic awake; not obtunded Speech / Cognition: normal speech Motor/Sensory: no tremor Psychiatric Orientation: alert and oriented x 3 Genitourinary no CVA tenderness Lymphatic no lymphadenopathy Principal Diagnosis BPH Discharge Exam Constitutional no acute distress Respiratory no respiratory distress and no labored breathing Musculoskeletal Head/Neck/Chest: normocephalic Skin no rashes, warm and dry Neurologic moves all extremities and awake Psychiatric A+Ox3, euthymic affect Discharge Data Allergies Allergy/AdvReac Type Severity Reaction Status Date / Time No Known Allergies Allergy Unknown Verified 08/18/24 07:26 Procedures Performed Operation Date: 08/18/24 08:35 Actual Procedures p Transurethral Resection of Prostate(Not Applicable) - Terence Johnson MD Hospital Course (1) Benign prostatic hyperplasia with urinary obstruction: Plan 79-year-old male admitted status post transurethral resection of the prostate. Patient tolerated procedure well. No issues postoperatively. He remained afebrile and hemodynamically stable. Labs were appropriate. Mukherjee catheter removed on postop day #1 and patient successfully passed voiding trial. He reported minimal pain. Ambulated without issue. Tolerated diet. He was discharged home on postop day #1. Patient was in stable condition at time of discharge. Discharge instructions were reviewed, all questions were answered. Total Time Total Time Spent Total Time Spent (In Minutes): 15 Discharge Plan Discharge Items Patient Disposition: Home - Self-Care Reason For Visit: HEMATURIA; BPH Discharge Diagnosis: Hematuria; BPH Activity: Per Instructions section Lifting: No more than 25 pounds Non-emergency contact: Surgeon and Urologist Call non-emergency contact if: you have any medication questions, your symptoms worsen, your pain is not controlled, your pain is worsening and you have a fever Follow-up/Referrals: Terence Johnson MD [Physician] - 09/16/24 3:15 pm Byron Ortiz MD [Primary Care Provider] - Diet: Regular Addtl Attending Provider Instructions: Please take all medications as prescribed and keep all follow-ups as scheduled. Please call our office at [phone] with any questions, concerns or need to reschedule appointments for any reason. We are happy to assist you. An antibiotic (Ciprofloxacin) has been sent to your pharmacy, please take as prescribed. Tips for your recovery at home: Dont be alarmed by brownish or reddish blood or clots in your urine. This is a result of the procedure. This may occur off and on for weeks to months after the procedure but should continue to improve. Drink plenty of fluids during the day (enough to keep your urine very light colored). This will help keep a healthy flow of urine. Do not lift >25 lbs until your followup Avoid constipation. Please use a stool softener (Colace) for the first two weeks after your procedure When to call [facility] at [phone]: Your urine contains heavy blood clots or you are unable to urinate You are constantly leaking urine Fever of 101F or higher, chills, nausea, or vomiting Your pain is not relieved with medication Pending Studies at Discharge: Yes Stand-Alone Forms: My [facility] Mobile Game Day, Smoking Cessation Medications and DC Order Prescriptions: Continued ciprofloxacin HCl 500 mg tablet 500 mg PO BID 3 Days Qty: 6 0RF metoprolol tartrate 25 mg tablet 25 mg PO QAM triamterene-hydrochlorothiazid 37.5-25 mg capsule 1 cap PO QAM hydrochlorothiazide 12.5 mg tablet 12.5 mg PO QAM multivitamin Tablet 1 tab PO BID ascorbic acid (vitamin C) [Vitamin C] 500 mg Tablet 500 mg PO QAM Discharge Orders: Discharge Order (Routine); Ordered 08/19/24 Ordered By: Sofia Benoit Admission Data Admit Date/Time: 08/18/24 10:39 Attending Provider: Terence Johnson Admit Provider: Terence Johnson Primary Care Provider: Byrno Ortiz Other Interventions: Discharge Summary Assessment (RN) Last Done: 08/19/24 14:46 Coding Level of Care Code 43610 IN/OBS DISCH 30 MIN/LESS Diagnoses Benign prostatic hyperplasia with urinary obstruction N40.1; N13.8
== END 2024-08-19 15:23 | disposition home or self-care (01) ==
LOC: ASU 06:59 → 3E 06:59